=== PATIENT | female | born 1975 | race Caucasian/White ===

== ENCOUNTER → 2019-08-13 15:00 | Outpatient (BNVA) | payer OTHER, SELFPAY | PROVIDERS: Family Provider Family Medicine; PCP Family Medicine; Visit Provider Nurse Practitioner Family | DX: E03.9 Hypothyroidism, unspecified (principal); R53.83 Other fatigue; F41.9 Anxiety disorder, unspecified; F32.9 Major depressive disorder, single episode, unspecified; R00.2 Palpitations | CPT/HCPCS: 80053; 84443 ==

== ENCOUNTER 2019-10-16 07:41 | Outpatient (CLI) | payer OTHER, SELFPAY ==
--- NOTE | 2019-10-16 07:53 | MM_ITS ---
WS: [id number] BILATERAL DIGITAL SCREENING MAMMOGRAPHY WITH CAD CLINICAL INFORMATION: SCREENN HISTORY: Screening mammogram. No current complaints. COMPARISON: TECHNIQUE: Bilateral CC and MLO views. FINDINGS: Scattered fibroglandular densities bilaterally. No suspicious focal mass, asymmetry, calcifications, or architectural distortion. No evidence of malignancy. MM/[place] [id number] IMPRESSION: BI-RADS: 1-Negative FOLLOW UP: 1 Year Follow-up Recommend return to annual screening mammography.
== END 2019-10-16 07:42 | disposition home or self-care (01) ==
LOC: RADSHAW 07:45
PROVIDERS: PCP Family Medicine; Visit Provider Internal Medicine
DX: Z12.31 Encounter for screening mammogram for malignant neoplasm of breast (principal)
CPT/HCPCS: 77067

== ENCOUNTER → 2019-11-10 16:05 | Outpatient (BNVA) | payer OTHER, SELFPAY | PROVIDERS: PCP Family Medicine; Visit Provider Nurse Practitioner Family | DX: E03.9 Hypothyroidism, unspecified (principal); E01.0 Iodine-deficiency related diffuse (endemic) goiter | CPT/HCPCS: 84443 ==

== ENCOUNTER 2020-01-13 14:29 | Outpatient (CLI) | payer OTHER, SELFPAY ==
[2019-12-26 11:20] LABS: Thyroid Stimulating Hormone 0.82 uIU/mL (0.27-4.20)
[2019-12-26 11:31] LABS: Add Urine Culture? No; Amorphous Sediment Urine 2+ /hpf; Bacteria Urine 1+ /hpf; Bilirubin Urine Neg (Negative); Blood Urine Neg (Negative); Glucose Urine UA Norm (Normal); Ketones Urine Negative (Negative); Leukocyte Esterase Urine Negative (Negative); Mucus Urine 2+ /hpf; Nitrate Urine Negative (Negative); Protein Urine Neg (Negative); RBC Urine 0-4 /hpf (0-2); Specific Gravity, Urine 1.015 (1.005-1.030); Sulfosalicylic Acid Urine Negative (Negative); Urine Appearance Clear (CLEAR); Urine Color Straw (Yellow); Urobilinogen Urine Norm (Negative)
--- NOTE | 2020-01-13 14:44 | US_ITS ---
WS: [id number] ULTRASOUND THYROID TECHNIQUE: Ultrasound of the thyroid. CLINICAL INFORMATION: Thyromegaly COMPARISON: None. FINDINGS: Thyroid: Right and left thyroid lobes are somewhat diminutive in size with normal echotexture. No thy roid nodules are present. Right thyroid lobe: 2.8 cm x 0.8 cm x 0.9 cm Left thyroid lobe: 1.9 cm x 0.8 cm x 0.4 cm. Isthmus: 0.2 mm. Cervical lymphadenopathy: None. US/US thyroid [id number] IMPRESSION: 1. Somewhat diminutive thyroid gland with normal echotexture. Recommend correl ation with thyroid function studies. 2. No suspicious nodules.
== END 2020-01-13 14:30 | disposition home or self-care (01) ==
LOC: RAD 14:32
PROVIDERS: PCP Nurse Practitioner Family; Visit Provider Nurse Practitioner Family
DX: E01.0 Iodine-deficiency related diffuse (endemic) goiter (principal); R30.0 Dysuria; R00.2 Palpitations
CPT/HCPCS: 76536

== ENCOUNTER → 2020-04-08 15:39 | Outpatient (BNVA) | payer OTHER, SELFPAY | PROVIDERS: PCP Nurse Practitioner Family; Visit Provider Nurse Practitioner Family | DX: R53.83 Other fatigue (principal); E66.9 Obesity, unspecified; D50.9 Iron deficiency anemia, unspecified; E03.9 Hypothyroidism, unspecified | CPT/HCPCS: 82607; 82728; 83550; 85025 ==

== ENCOUNTER → 2020-04-09 10:07 | Outpatient (BNVA) | payer OTHER, SELFPAY | PROVIDERS: PCP Nurse Practitioner Family; Visit Provider Nurse Practitioner Family | DX: R53.83 Other fatigue (principal); E66.9 Obesity, unspecified; D50.9 Iron deficiency anemia, unspecified | CPT/HCPCS: 84466 ==

== ENCOUNTER → 2020-04-14 08:15 | Outpatient (BNVA) | payer OTHER, SELFPAY | PROVIDERS: PCP Nurse Practitioner Family; Visit Provider Internal Medicine | DX: Z20.828 Contact with and (suspected) exposure to other viral communicable diseases (principal) | CPT/HCPCS: 87635 ==

== ENCOUNTER 2020-04-16 13:44 | Inpatient (IN) | payer OTHER, SELFPAY ==
[2020-04-15 10:23] VITALS: BMI 32.1
--- NOTE | 2020-04-16 09:23 | P.HP_ITS ---
Same Day Surgery H&P Indication for Procedure/HPI DATE OF PROCEDURE: April 16, 2020 CHIEF COMPLAINT/INDICATIONFOR SURGICAL PROCEDURE: Iron deficiency anemia with heme positive stools. PREOP DIAGNOSIS: Iron deficiency anemia with heme positive stools. PLANNED PROCEDRUE: Operation Date: 04/16/20 10:30 Proposed Procedures p EGD 16972 R19.5(Not Applicable) - Tim Shen MD s Colonoscopy 13016 D50.9(Not Applicable) - Tim Shen MD Medications/Allergies* Home Medications Medication Instructions Recorded Confirmed Type vilazodone [Viibryd] 20 mg PO DAILY 04/15/20 04/15/20 History Allergies/Adverse Reactions Allergy/AdvReac Type Severity Reaction Status Date / Time No Known Allergies Allergy Unverified 04/08/20 09:09 Pertinent History/Comorbid Conditions* Medical History (Updated 04/09/20 @ 09:24 by Yanet Jeffery APRN) Hypothyroid Family History (Updated 08/13/19 @ 12:34 by Cyndie Yeh LPN) Diabetes Cancer Social History Smoking and tobacco status: former smoker Alcohol intake: current Alcohol intake frequency: holidays/special occasions only Pertinent Exam Findings alert, oriented x 3, clear to auscultation bilaterally, regular rate & rhythm, operative site marked and procedure specific exam findings Recommendations Surgery/Procedure today Coding Level of Care Code 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
[2020-04-16 09:46] VITALS: BP 115/80; PULSE 85; RESP 18; TEMP 36.9; O2SAT 100
[2020-04-16 10:01] LABS: OR HCG Qualitative Urine Negative (Negative)
[2020-04-16] MEDS: sodium chloride 0.9% 1,000 ML 30 ML IV (10:24)
--- NOTE | 2020-04-16 10:35 | ANES.PREANE2 ---
Pre-Anesthetic Assessment Pre-Anesthetic Assessment: Height/Weight: Height 1.63 m Weight 84.822 kg Temp Pulse Resp BP Pulse Ox 98.4 F 85 18 115/80 100 04/16/20 09:46 04/16/20 09:46 04/16/20 09:46 04/16/20 09:46 04/16/20 09:46 Preop Diagnosis: anemia Proposed Procedure: Operation Date: 04/16/20 10:30 Proposed Procedures p EGD 66541 R19.5(Not Applicable) - Tim Shen MD s Colonoscopy 01294 D50.9(Not Applicable) - Tim Shen MD Familial anesthetic complications: none Was Beta Mable taken within 24 hours: N/A Last intake: Intake Last Liquid Date 04/15/20 Last Liquid Time 00:15 Last Solid Date 04/14/20 Last Solid Time 04:00 Social: Social History: No alcohol and No tobacco Comment: former smoker Exam: Pre-Anes Outpt Exam: alert, oriented x 3, clear to auscultation bilaterally and regular rate & rhythm Airway: Cervical ROM: WNL MP: 2 Dentition: Full CV/HEM: CV/HEM: Anemia and Palp Metabolic: Metabolic: Thyroid Anesthetic Plan: ASA status: 2 Anesthesia: MAC Risk of > 500 ml blood loss (7ml/kg in children): No Meds/Allergies Current Medications: Current Medications Generic Name Dose Route Start Last Admin Trade Name Freq PRN Reason Stop Dose Admin Sodium Chloride 1,000 mls @ 30 ml s/hr 04/16/20 09:45 04/16/20 10:24 Sodium Chloride 0.9% IV 04/17/20 09:44 30 mls/hr .Q24H DAHLIA Administration PFSH Anesthesia PFSH: Medical History (Updated 04/09/20 @ 09:24 by Yanet Jeffery APRN) Hypothyroid Family History Other Cancer Diabetes Social History Smoking and tobacco status: former smoker Alcohol intake: current Alcohol intake frequency: holidays/special occasions only Data Anesthesia Other Labs: Laboratory Results - last 48 hr 04/16/20 09:55 Urine HCG, Qual Negative Cardiac Studies: No Data to Display
--- NOTE | 2020-04-16 11:53 | CT_ITS ---
WS: [id number] CT ABDOMEN AND PELVIS WITH CONTRAST HISTORY: Sigmoid colon cancer. TECHNIQUE: Imaging performed of the abdomen and pelvis with IV contrast. Single phase imaging of the abdomen. Coronal and sagittal reformats are submitted. All CT scans at [facility] use at least one of these dose optimization techniques: automated exposure control; mA and/or kV adjustment per patient size (includes targeted exams where dose is matched to clinical indication); or iterativ e reconstruction. IV CONTRAST: Omnipaque 300; 95 mL IV. Oral contrast: Yes. DLP: 991.27 mGy.cm COMPARISON: None available. Lower thorax: Lung bases are clear. Heart is normal size. No hiatal hernia. Liver/biliary system: Normal size with no intrahepatic dilatation. Gallbladder: Normal. No gallstones or wall thickening. No pericholecystic fluid. Pancreas: Normal. Spleen: Normal. Adrenal glands: Normal. Right kidney: Normal. Left kidney: Normal. Aorta: Normal. Lymphadenopathy: None. Free fluid: None. GI tract: No GI tract obstruction. There is a annular lesion extending over length of 3 cm in the dis raphael descending colon. The colon is tortuous and this lesion is centered towards the midline. There is wall thickening measuring up to 1.1 cm in diameter. No adjacent adenopathy or fluid. Abdominal wall: Unremarkable abdominal wall. No hernia. Pelvis: IUD noted within the endometrial canal. There is also increased density along the cervical an d vaginal canals which appears to be the density of the GI contrast. No rectal contrast was given. Bones: Unremarkable. CT/CT abdomen pelvis w con* [id number] IMPRESSION: 1. Annular colonic lesion in the distal descending/sigmoid colon extends over length of 3 cm with wall thickening measuring up to 1.1 cm. Consistent with col on neoplasm. 2. No metastatic disease to the liver or adrenal glands. No adenopathy identif ied. 3. High density contrast in the cervical and vaginal canals. Possibility of a r ectovaginal or rectocervical fistula should be considered. Notified Tim Shen MD and Dr. Castellanos at 04/16/2020 2:02 PM.
--- NOTE | 2020-04-16 11:54 | ANE.PACU2 ---
Inpatient post-anesthesia follow up: Airway intact: Yes Vital signs: Temperature 98.4 F Pulse Rate 85 Respiratory Rate 18 Blood Pressure 115/80 Pulse Oximetry 100 Oxygen Delivery Me thod Room Air Oxygen Flow Rate Fraction of Inspir ed Oxygen Hydration adequate: Yes Nausea and vomiting: No Mental status: Baseline
[2020-04-16 11:56] VITALS: BP 97/59; PULSE 70; RESP 16; TEMP 36.2; O2SAT 98
[2020-04-16] MEDS: iohexol 300 mg/mL 50 mL Btl PO (12:16)
[2020-04-16 12:17] VITALS: BP 139/79; PULSE 86; RESP 18; O2SAT 100
[2020-04-16 12:54] LABS: Basophils # 0.1 10^3/uL (0.0-0.1); Eosinophils # 0.1 10^3/uL (0.0-0.8); Hematocrit 32.7 % (37.0-47.0); Hemoglobin 9.9 g/dL (11.5-15.3); Lymphocytes # 1.3 10^3/uL (0.8-4.8); Lymphocytes % 21.6 %; Mean Corpuscular HGB Conc 30.3 g/dL (30.0-36.0); Mean Corpuscular Hemoglobin 26.2 pg (28.0-34.0); Mean Corpuscular Volume 86.5 fL (81-99); Mean Platelet Volume 11.1 fL (7.4-10.4); Monocytes # 0.5 10^3/uL (0.2-0.9); Monocytes % 7.5 %; Neutrophils # 4.14 10^3/uL (1.8-7.7); Neutrophils % 67.6 %; Nucleated Red Blood Cells % 0 %; Platelet Count 330 10^3/cmm (130-400); Red Blood Count 3.78 10^6/uL (4.1-5.3); Red Cell Distribution Width 16.1 % (12.1-15.1); White Blood Count 6.1 10^3/uL (4.0-10.0)
[2020-04-16 13:05] VITALS: BP 146/82; PULSE 88; O2SAT 97
--- NOTE | 2020-04-16 13:37 | PC.NURSE ---
this nurse took pt to CT via wheelchair, pt AAO x 3
[2020-04-16] MEDS: iohexol 300 mg/mL 100 mL Btl IV (13:38)
--- NOTE | 2020-04-16 13:56 | PC.NURSE ---
this nurse returned with pt in a wheelchair, pt AAO x 3. pt up to bed and warm blankets applied.
[2020-04-16 14:11] LABS: Carcinoembryonic Antigen 1.3 ng/mL (0.0-4.7)
[2020-04-16 14:22] LABS: Alanine Aminotransferase 11 U/L (0-33); Albumin Level 3.9 g/dL (3.5-5.2); Alkaline Phosphatase 73 IU/L (35-105); Anion Gap 15.8 (5-19); Aspartate Amino Transferase 15 U/L (0-32); Blood Urea Nitrogen 6 mg/dL (6-20); Calcium 8.8 mg/dL (8.5-10.5); Carbon Dioxide 22 mmol/L (22-29); Chloride 106 mmol/L (98-107); Globulin 2.9 g/dL (1.3-4.6); Glomerular Filtration Rate 108.1 mL/min (90-130); Glucose 104 mg/dL (65-115); Osmolality Calculated 288 mOsm/kg (285-295); Potassium 3.8 mmol/L (3.5-5.1); Sodium 140 mmol/L (136-145); Total Bilirubin 0.5 mg/dL (0.15-1.2); Total Protein 6.8 g/dL (6.6-8.7)
[2020-04-16 14:35] VITALS: BP 123/86; PULSE 80
--- NOTE | 2020-04-16 14:42 | P.HP_ITS ---
Providers/Chief Complaint Admitting Physician: General Surgery Alden Castellanos MD Primary Care Provider: Yanet Jeffery APRN Chief Complaint: Iron def anemia, Fecal abnormalities History of Present Illness Bonnie Lr is a 44 year old female who underwent upper and lower endoscopy earlier today by Dr. Shen for iron deficiency anemia. Her EGD was normal but her colonoscopy revealed a malignant appearing mass at approximately 30 cm. The mass could not be traversed. The patient was admitted for further management for fear of impending complete obstruction. The patient tells me that she has had some bright red blood in her stool intermittently over the past 3 months. She has had some intermittent left sided and lower abdominal tenderness at times, but she says she has not had any other significant changes in her bowel habits. Her weight has actually been going up. She has no known family history of colon neoplasia. Review of Systems General: Reports: 10 or more systems reviewed and unremarkable except in HPI and below Const: Denies: fever(s) GI: Reports: abdominal pain and hematochezia Psych: Reports: anxiety and depression Medications/Allergies Home Medications Medication Instructions Recorded Confirmed Last Taken Type levothyroxine 125 mcg capsule 125 mcg PO DAILY #30 cap 11/10/19 04/16/20 04/16/20 Rx semaglutide 3 mg tablet 3 mg PO DAILY 30 Days #30 tab 04/08/20 04/15/20 Unknown Rx ferrous sulfate 250 mg (50 mg 250 mg PO DAILY #30 tab 04/09/20 04/16/20 04/15/20 Rx iron) tablet,extended release vilazodone [Viibryd] 20 mg PO DAILY 04/15/20 04/16/20 04/15/20 History Allergies Allergy/AdvReac Type Severity Reaction Status Date / Time No Known Allergies Allergy Unverified 04/08/20 09:09 PFSH Acute PFSH: Medical History (Updated 04/16/20 @ 14:45 by Alden Castellanos MD) Anxiety and depression Hair loss Heart palpitations Hypothyroid Surgical History (Updated 04/16/20 @ 14:45 by Alden Castellanos MD) H/O breast biopsy Right History of oophorectomy Right -- dermoid cyst Family History (Updated 04/16/20 @ 14:45 by Alden Castellanos MD) Mother Cancer Breast Other Diabetes Social History Smoking and tobacco status: former smoker Alcohol intake: current Alcohol intake frequency: holidays/special occasions only Vitals/I&O/Wt Last Vital Signs Temp 97.2 F L 04/16/20 11:56 Pulse 88 04/16/20 13:05 Resp 18 04/16/20 12:17 BP 146/82 04/16/20 13:05 Pulse Ox 97 04/16/20 13:05 04/15/20 04/16/20 04/16/20 22:59 06:59 14:59 Intake Total 1000 / 1000 Balance 1000 / 1000 Weight last 48 hrs Weight 187 lb Physical Exam Narrative: EXAM NARRATIVE: The patient was encountered in her hospital room. She does not appear to be in any acute distress. The pupils are equal. No carotid bruits are heard. No neck masses are palpated. The chest is clear to auscultation anteriorly. Heart is regular. The abdomen is mildly to moderately obese but is soft. The patient does have some mild lower abdominal tenderness near the midline. No obvious masses are palpated. Bowel sounds are present. The extremities reveal no edema. Neurologically the patient appears to be grossly intact. Data : 04/16/20 12:45 04/16/20 13:27 Other Labs: Laboratory Tests 04/16/20 13:[address] Carcino[address] Abd/Pel: Radiologist's impression: CT scan abdomen/pelvis 04/16/2020 IMPRESSION: 1. Annular colonic lesion in the distal descending/sigmoid colon extends over length of 3 cm with wall thickening measuring up to 1.1 cm. Consistent with colon neoplasm. 2. No metastatic disease to the liver or adrenal glands. No adenopathy identified. 3. High density contrast in the cervical and vaginal canals. Possibility of a rectovaginal or rectocervical fistula should be considered. A&P Assessment and plan (1) Neoplasm of sigmoid colon: CT reviewed. The patient appears to have some redundancy to her sigmoid colon, making me think this will not be a terribly difficult partial colectomy. 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 She she has indicated that she thought her prep worked fairly well yesterday but would not be opposed to doing a little bit more of a prep to make sure that her colon is completely cleaned out prior to surgery. I am going to have the patient drink 1 more bottle of magnesium citrate today. She will be allowed a clear liquid diet until midnight. We will make arrangements for an exploratory laparotomy with partial sigmoid colectomy tomorrow morning. Status: Acute (2) Rectovaginal fistula: The CAT scan was suggestive of a possible rectovaginal fistula. The patient says that she first thought she had passed a little bit of stool through her vagina probably 10 years ago, but really has not seen anything significant since until yesterday when she was doing her prep when she thought she saw a little bit more. It sounds like she probably does have a very small fistula present and patient has known about this for several years, although it rarely ever gives her any signs or symptoms. She is comfortable with this being a back burner issue for now. Status: Acute Attestations Medical Necessity Statement*: Based on my medical assessment, presenting symptoms, medical accuity and consideration of surgical therapy, I expect this patient will require treatment in the hospital for a period spanning at least 2 midnights. 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
[2020-04-16] MEDS: D5-NS 0.45% + KCL 20 mEq 20 MEQ/1,000 ML BAG 100 MEQ IV (15:43)
[2020-04-16] MEDS: magnesium citrate Btl 296 mL PO (15:44)
[2020-04-16] MEDS: metroNIDAZOLE 500 MG Tablet PO ×2 (20:17→22:14)
[2020-04-16 22:00] VITALS: BP 112/74; PULSE 83; RESP 15; TEMP 36.9
[2020-04-17] VITALS (31 sets, daily range): BP systolic 95–123; BP diastolic 55–82; PULSE 66–94; RESP 14–27; TEMP 36.6–36.9; O2SAT 95–100
[2020-04-17] MEDS: D5-NS 0.45% + KCL 20 mEq 20 MEQ/1,000 ML BAG 100 MEQ IV ×2 (02:10→20:44)
--- NOTE | 2020-04-17 07:43 | P.ANESUD_ITS ---
Pre-Anesthetic Update Pre-Anesthetic Assessment: Date of Surgery/Procedure: 04/17/20 Preop Maria Antonia gnosis: anemia Proposed Procedure: Operation Date: 04/16/20 10:30 Proposed Procedures p EGD 89729 R19.5(Not Applicable) - Tim Shen MD s Colonoscopy 06955 D50.9(Not Applicable) - Tim Shen MD Operation Date: 04/17/20 08:30 Proposed Procedures p Sigmoid Colectomy(Not Applicable) - Alden Castellanos MD Changes from Pre-Anesthetic Assessment: general anesthesia planned for sigmoid colectomy. No changes in patient condition noted from yesterday. Last Intake: Intake Last Liquid Date 04/15/20 Last Liquid Time 00:15 Last Solid Date 04/14/20 Last Solid Time 04:00 Last Intake: 22:00 Labs Last 48hrs: Laboratory Results - last 48 hr 04/16/20 04/16/20 04/16/20 09:55 12:45 12:45 WBC 6.1 RBC 3.78 L Hgb 9.9 L Hct 32.7 L MCV 86.5 MCH 26.2 L MCHC 30.3 RDW 16.1 H Plt Count 330 MPV 11.1 H Neut % (Auto) 67.6 Lymph % (Auto) 21.6 Clay % (Auto) 7.5 Eos % (Auto) 1.0 Baso % (Auto) 2.0 Neut # (Auto) 4.14 Lymph # (Auto) 1.3 Clay # (Auto) 0.5 Eos # (Auto) 0.1 Baso # (Auto) 0.1 Nucleated RBC % (a uto) 0 Nucleated RBCs # 0.0 Sodium Cancelled Potassium Cancelled Chloride Cancelled Carbon Dioxide Cancelled Anion Gap Cancelled BUN Cancelled Creatinine Cancelled GFR Calculation Cancelled Glucose Cancelled Calculated Osmolal ity Cancelled Calcium Cancelled Total Bilirubin Cancelled AST Cancelled ALT Cancelled Alkaline Phosphata se Cancelled Total Protein Cancelled Albumin Cancelled Globulin Cancelled Carcinoembryonic A g Cancelled Urine HCG, Qual Negative 04/16/20 13:27 WBC RBC Hgb Hct MCV MCH MCHC RDW Plt Count MPV Neut % (Auto) Lymph % (Auto) Clay % (Auto) Eos % (Auto) Baso % (Auto) Neut # (Auto) Lymph # (Auto) Clay # (Auto) Eos # (Auto) Baso # (Auto) Nucleated RBC % (a uto) Nucleated RBCs # Sodium 140 Potassium 3.8 Chloride 106 Carbon Dioxide 22 Anion Gap 15.8 BUN 6 Creatinine 0.6 GFR Calculation 108.1 Glucose 104 Calculated Osmolal ity 288 Calcium 8.8 Total Bilirubin 0.5 AST 15 ALT 11 Alkaline Phosphata se 73 Total Protein 6.8 Albumin 3.9 Globulin 2.9 Carcinoembryonic A g 1.3 Urine HCG, Qual Vitals: Temperature 98 F 04/17/20 07:15 Temperature Source Oral 04/16/20 22:00 Pulse Rate 78 04/17/20 07:30 Pulse Rhythm 04/16/20 21:00 Pulse Strength 3+ Normal 04/16/20 21:00 Respiratory Rate 16 04/17/20 07:30 Respiratory Effort Non-Labored 04/16/20 16:43 Respiratory Depth Normal 04/16/20 16:43 Respiratory Patter n 04/16/20 21:00 Blood Pressure 119/69 04/17/20 07:30 Blood Pressure Skyla n 85 04/17/20 07:30 Blood Pressure Pos ition Sitting 04/16/20 22:00 Pulse Oximetry 95 04/17/20 07:30 Oxygen Delivery Me thod 04/17/20 07:30 Oxygen Flow Rate 98 04/17/20 07:15 Exam: Pre-Anes Outpt Exam: alert, oriented x 3 and clear to auscultation bilaterally Cardiac Studies: No Data to Display
--- NOTE | 2020-04-17 07:48 | PC.NURSE ---
pt to OR with staff
[2020-04-17] MEDS: sodium chloride 0.9% 1,000 ML 30 ML IV (07:50)
--- NOTE | 2020-04-17 07:52 | W.PM.OPSUD ---
Surgery/Procedure H&P Update DATE OF PROCEDURE: April 17, 2020 DATE H&P PERFORMED: 04/13/20 H&P UPDATE INFORMATION: No changes to prior documentation PRIMARY INDICATION FOR PROCEDURE: Sigmoid colon neoplasm. PLANNED PROCEDURE: Operation Date: 04/16/20 10:30 Proposed Procedures p EGD 99211 R19.5(Not Applicable) - Tim Shen MD s Colonoscopy 08814 D50.9(Not Applicable) - Tim Shen MD Operation Date: 04/17/20 08:30 Proposed Procedures p Sigmoid Colectomy(Not Applicable) - Alden Castellanos MD
[2020-04-17] MEDS: metroNIDAZOLE IV 500 MG/100 ML PREMIX 100 MG IV ×2 (08:05→16:09)
--- NOTE | 2020-04-17 08:39 | SUR.OPER ---
[id number] updated of surgical status
--- NOTE | 2020-04-17 10:03 | PM.OP ---
Operative Report Date of procedure: April 17, 2020 Pre-op Diagnosis: Sigmoid colon neoplasm. Post-op diagnosis: same Procedure Done: Exploratory laparotomy with sigmoid colectomy. Specimens removed/disposition: Sigmoid colon, staple line at proximal end. Surgeon: Alden Castellanos Anesthesia: General Estimated blood loss (mL): 50 Complications: None. Condition: stable Disposition: PACU Procedure: The patient was brought to the operating room and was placed in a supine position on the operating room table. General endotracheal anesthesia was induced. The patient was then converted to a modified lithotomy position. A Multani catheter was inserted. The abdomen and perineum were prepped and draped in a sterile fashion. A lower midline incision was carried out. Cautery was used to divide the subcutaneous tissue and the midline fascia and the peritoneal cavity was then entered. The liver was palpated and no obvious masses were felt. Palpation in the lower abdomen revealed the sigmoid tumor that was actually able to be fairly easily mobilized into the incision, as the patient had quite a bit of redundant sigmoid. The endoscopic ink was clearly identified. The Bookwalter retractor was then used for exposure. The patient's distal sigmoid colon was adhesed to the posterior surface of the uterus and the left ovary. These adhesions were taken down using some blunt dissection and cautery to maintain hemostasis. The colon was divided well distal to the tumor between bowel clamps. The inferior mesenteric artery was divided close to its base and was ligated. Dissection laterally revealed the left ureter. Proximal to the tumor the colon was divided using a LALO 55 stapler. The intervening mesentery was then divided using the LigaSure, ligating larger vessels with ties of 0 or #1 Vicryl. The abdomen was irrigated with several liters of saline. Given the redundancy of the sigmoid colon, further proximal mobilization was not necessary. The staple line on the proximal end of the divided colon was then taken off with True scissors. The colon was then reanastomosed using a handsewn technique. The anastomosis was created by triangulating with multiple pop offs of 3-0 Vicryl. The pelvis was again irrigated and while some irrigation was still in the pelvis a rigid sigmoidoscope was used to inflate the distal colon via the rectum. The colon filled very well and no air leaks were seen at the anastomosis under a level of saline in the pelvis. Further irrigation was carried out. All the laps were removed from the abdomen and the entire abdomen was then irrigated. No ongoing bleeding or other problems were seen anywhere in the abdomen. All needle, instrument, and sponge counts were confirmed to be correct to that point and attention was directed towards closure. The midline fascia was closed using a looped #1 PDS. The subcutaneous tissue was extensively irrigated and the skin was then approximated using skin pete. A sterile dressing was placed over the wound the patient was taken to the recovery area in stable condition postoperatively.
[2020-04-17] MEDS: ondansetron 2 mg/ML SDV 2 mL 4 MG IVP ×3 (10:24→15:42)
[2020-04-17] MEDS: morphine 4 mg/mL SDV 1 mL 2 MG IVP (10:25)
[2020-04-17] MEDS: HYDROmorphone 1 mg/mL INJ 1 mL 0.5 MG IVP (10:38)
--- NOTE | 2020-04-17 11:08 | PC.NURSE ---
Pt back to floor from OR via stretcher. Moved to bed with full assist. Call light in reach
[2020-04-17] MEDS: morphine 4 mg/mL SDV 1 mL IVP ×2 (11:29→15:41)
[2020-04-17] MEDS: heparin 5,000 unit/mL INJ 1 mL 5000 UNIT SUBCUT ×2 (12:21→23:29)
[2020-04-17] MEDS: famotidine 20 mg/2 mL INJ IVP ×2 (12:21→23:18)
[2020-04-17] MEDS: promethazine 25 mg/mL SDV 1 mL IM ×2 (12:57→18:34)
[2020-04-17] MEDS: HYDROmorphone 1 mg/mL INJ 1 mL IVP ×3 (14:19→23:16)
--- NOTE | 2020-04-17 14:44 | ANE.PACU2 ---
Inpatient post-anesthesia follow up: Airway intact: Yes Vital signs: Temperature 98.2 F Pulse Rate 88 Respiratory Rate 16 Blood Pressure 120/82 Pulse Oximetry 100 Oxygen Delivery Me thod Room Air Oxygen Flow Rate 8 Fraction of Inspir ed Oxygen Hydration adequate: Yes Nausea and vomiting: No Pain level: 4 Mental status: Baseline
[2020-04-17] MEDS: ceFAZolin 1,000 MG in sodium chloride 0.9% (plus) 50 ML 100 MG IV ×2 (15:42→23:33)
[2020-04-17] MEDS: ketorolac 30 mg/mL INJ IVP (16:08)
[2020-04-17] MEDS: levalbuterol 0.63 mg/3 mL Neb INHALATION (16:11)
[2020-04-18] VITALS (12 sets, daily range): BP systolic 78–108; BP diastolic 48–64; PULSE 70–82; RESP 15–18; TEMP 36.3–37.1; O2SAT 96–99
[2020-04-18] MEDS: metroNIDAZOLE IV 500 MG/100 ML PREMIX 100 MG IV ×2 (00:55→08:29)
[2020-04-18] MEDS: HYDROmorphone 1 mg/mL INJ 1 mL IVP ×3 (05:11→16:44)
[2020-04-18] MEDS: ketorolac 30 mg/mL INJ IVP ×2 (05:53→16:43)
[2020-04-18 06:23] LABS: Basophils # 0.1 10^3/uL (0.0-0.1); Basophils % 0.9 %; Eosinophils % 0.3 %; Hematocrit 26.8 % (37.0-47.0); Hemoglobin 8.2 g/dL (11.5-15.3); Lymphocytes # 1.1 10^3/uL (0.8-4.8); Lymphocytes % 14.8 %; Mean Corpuscular HGB Conc 30.6 g/dL (30.0-36.0); Mean Corpuscular Hemoglobin 26.5 pg (28.0-34.0); Mean Corpuscular Volume 86.7 fL (81-99); Mean Platelet Volume 10.8 fL (7.4-10.4); Monocytes # 0.9 10^3/uL (0.2-0.9); Monocytes % 11.5 %; Neutrophils # 5.36 10^3/uL (1.8-7.7); Neutrophils % 72.2 %; Nucleated Red Blood Cells % 0 %; Platelet Count 271 10^3/cmm (130-400); Red Blood Count 3.09 10^6/uL (4.1-5.3); Red Cell Distribution Width 16.7 % (12.1-15.1); White Blood Count 7.4 10^3/uL (4.0-10.0)
[2020-04-18 06:27] LABS: Anion Gap 13.7 (5-19); Blood Urea Nitrogen 4 mg/dL (6-20); Calcium 8.3 mg/dL (8.5-10.5); Carbon Dioxide 19 mmol/L (22-29); Chloride 107 mmol/L (98-107); Glomerular Filtration Rate 108.1 mL/min (90-130); Glucose 111 mg/dL (65-115); Osmolality Calculated 280 mOsm/kg (285-295); Potassium 3.7 mmol/L (3.5-5.1); Sodium 136 mmol/L (136-145)
[2020-04-18] MEDS: ceFAZolin 1,000 MG in sodium chloride 0.9% (plus) 50 ML 100 MG IV (07:31)
--- NOTE | 2020-04-18 10:38 | PM.PN ---
Subjective Subjective: Interval history: The patient is feeling much better today. She has had much better luck with Dilaudid as opposed to morphine for postoperative pain control. She has been up moving around. Nursing took it upon themselves to remove her urinary catheter earlier today. She is not passing flatus yet. Vitals/I&O/Wt Last Vital Signs Temp 98.4 F 04/18/20 09:45 Pulse 73 04/18/20 09:45 Resp 16 04/18/20 10:16 BP 108/64 04/18/20 09:45 Pulse Ox 97 04/18/20 10:16 04/17/20 04/18/20 04/18/20 22:59 06:59 14:59 Intake Total 250 / 3550 150 / 3550 Output Total 1900 / 3750 1200 / 3750 100 / 100 Balance -1650 / -200 -1050 / -200 -100 / -100 Physical Exam Narrative: EXAM NARRATIVE: Bowel sounds are present. Dressing is intact. Urinary Catheter Management^: Multani: Cath Placed During This Visit: yes, but has since been removed by the nurse Reason for Continuing Indwelling Catheter: Decision to DC Catheter Urinary Catheter Date of Insertion: 04/17/20 Urinary Catheter Time of Insertion: 08:15 Date Urinary Catheter Removed: 04/18/20 Time Urinary Catheter Discontinued: 03:47 Data : 04/18/20 06:15 04/18/20 05:15 A&P Assessment and plan (1) Neoplasm of sigmoid colon: Status post exploratory laparotomy with partial sigmoid colectomy on 04/17/2020. The patient already has bowel sounds and appears to be doing well. Increase activity. Status: Acute (2) Rectovaginal fistula: The CAT scan was suggestive of a possible rectovaginal fistula. The patient says that she first thought she had passed a little bit of stool through her vagina probably 10 years ago, but really has not seen anything significant since until yesterday when she was doing her prep when she thought she saw a little bit more. It sounds like she probably does have a very small fistula present and patient has known about this for several years, although it rarely ever gives her any signs or symptoms. She is comfortable with this being a back burner issue for now. Status: Acute Attestations Medical Necessity Statement*: Patient requires continued inpatient care following partial sigmoid colectomy. 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
[2020-04-18] MEDS: D5-NS 0.45% + KCL 20 mEq 20 MEQ/1,000 ML BAG 100 MEQ IV ×2 (11:00→21:09)
[2020-04-18] MEDS: famotidine 20 mg/2 mL INJ IVP ×2 (11:00→23:57)
[2020-04-18] MEDS: heparin 5,000 unit/mL INJ 1 mL 5000 UNIT SUBCUT (11:00)
[2020-04-19] VITALS (11 sets, daily range): BP systolic 90–113; BP diastolic 57–74; PULSE 77–90; RESP 14–18; TEMP 36.6–36.9; O2SAT 97–99
[2020-04-19] MEDS: heparin 5,000 unit/mL INJ 1 mL 5000 UNIT SUBCUT (00:03)
[2020-04-19] MEDS: HYDROmorphone 1 mg/mL INJ 1 mL IVP ×3 (03:03→21:08)
[2020-04-19] MEDS: ketorolac 30 mg/mL INJ IVP (03:05)
[2020-04-19 05:14] LABS: Chloride 107 mmol/L (98-107); Potassium 3.8 mmol/L (3.5-5.1); Sodium 137 mmol/L (136-145)
[2020-04-19 05:54] LABS: Anion Gap 12.8 (5-19); Blood Urea Nitrogen 4 mg/dL (6-20); Calcium 8.2 mg/dL (8.5-10.5); Carbon Dioxide 21 mmol/L (22-29); Creatinine Clr Calc Pharmacy 149.7213; Glomerular Filtration Rate 133.4 mL/min (90-130); Glucose 130 mg/dL (65-115); Osmolality Calculated 283 mOsm/kg (285-295)
[2020-04-19 06:26] LABS: Basophils # 0.1 10^3/uL (0.0-0.1); Basophils % 1.9 %; Eosinophils # 0.1 10^3/uL (0.0-0.8); Eosinophils % 2.3 %; Hematocrit 24.9 % (37.0-47.0); Hemoglobin 7.4 g/dL (11.5-15.3); Lymphocytes # 1.3 10^3/uL (0.8-4.8); Lymphocytes % 27.5 %; Mean Corpuscular HGB Conc 29.7 g/dL (30.0-36.0); Mean Corpuscular Hemoglobin 26.1 pg (28.0-34.0); Mean Corpuscular Volume 87.7 fL (81-99); Mean Platelet Volume 10.7 fL (7.4-10.4); Monocytes # 0.4 10^3/uL (0.2-0.9); Monocytes % 8.1 %; Neutrophils # 2.91 10^3/uL (1.8-7.7); Nucleated Red Blood Cells % 0 %; Platelet Count 241 10^3/cmm (130-400); Red Blood Count 2.84 10^6/uL (4.1-5.3); Red Cell Distribution Width 16.8 % (12.1-15.1); White Blood Count 4.8 10^3/uL (4.0-10.0)
[2020-04-19] MEDS: D5-NS 0.45% + KCL 20 mEq 20 MEQ/1,000 ML BAG 100 MEQ IV (06:54)
--- NOTE | 2020-04-19 10:14 | PM.PN ---
Subjective Subjective: Interval history: The patient started passing flatus this morning. She actually subsequently even had a bowel movement. She tolerated clear liquids for breakfast but is not terribly hungry. She was hoping we could change her nebulizer treatments to as needed. Vitals/I&O/Wt Last Vital Signs Temp 98.2 F 04/19/20 06:00 Pulse 77 04/19/20 06:00 Resp 16 04/19/20 07:47 BP 90/57 04/19/20 06:00 Pulse Ox 97 04/19/20 06:00 04/18/20 04/19/20 04/19/20 22:59 06:59 14:59 Intake Total 999 / 1974 975 / 1975 250 / 250 Output Total 275 / 1225 700 / 1225 200 / 200 Balance 725 / 750 275 / 750 50 / 50 Physical Exam Narrative: EXAM NARRATIVE: The dressing was removed and the incision looks good. Urinary Catheter Management^: Multani: Cath Placed During This Visit: yes, but has since been removed by the nurse Reason for Continuing Indwelling Catheter: Decision to DC Catheter Urinary Catheter Date of Insertion: 04/17/20 Urinary Catheter Time of Insertion: 08:15 Date Urinary Catheter Removed: 04/18/20 Time Urinary Catheter Discontinued: 03:47 Data : 04/19/20 06:20 04/19/20 04:30 A&P Assessment and plan (1) Neoplasm of sigmoid colon: Status post exploratory laparotomy with partial sigmoid colectomy on 04/17/2020. Bowel function appears to have returned. Advance diet to a low residue diet as tolerated. Hemoglobin has drifted somewhat -- we will decrease IV rate and stop subcutaneous heparin as patient is up ambulating regularly. Change nebulizers to as needed. P.o. pain medication. Status: Acute (2) Rectovaginal fistula: The CAT scan on admission was suggestive of a possible rectovaginal fistula. The patient says that she first thought she had passed a little bit of stool through her vagina probably 10 years ago, but really has not seen anything significant since until yesterday when she was doing her prep when she thought she saw a little bit more. It sounds like she probably does have a very small fistula present and patient has known about this for several years, although it rarely ever gives her any signs or symptoms. She is comfortable with this being a back burner issue for now. Status: Acute Attestations Medical Necessity Statement*: Patient requires continued inpatient care following sigmoid resection. 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
--- NOTE | 2020-04-19 10:58 | AMB.MCA ---
Patient Information COVID 19 other sytmptoms: negative chest pressure, chest pain, requiring oxygen or requiring more oxygen Severity: mild Treatment prior to arrival: none [facility] COVID test results: Nasal/Oral Coronavirus 2019 PCR Not detected 04/14/20 08:15 04/14/20 outside results available, scanned Criteria/Plan Inclusion/Exclusion Criteria weight >/= 40kg, + direct test </= 10 days ago and symptom onset </= 10 days ago age >/= 65 Patient education patient/caregiver received/reviewed fact sheet, Emergency Use Authorization/unapproved drug status discussed with patient/caregiver, alternatives to this treatment discussed with patient/caregiver, risks and benefits of medication reviewed with patient/caregiver, patient/caregiver given opportunity for questions, which were answered and patient/caregiver consents to receiving Monoclonal Antibody Treatment Plan for treatment Meets criteria for Monoclonal Antibody infusion Monoclonal antibody information given
[2020-04-19] MEDS: famotidine 20 mg/2 mL INJ IVP (11:53)
[2020-04-19] MEDS: HYDROcodone-acetaminophen 5-325 mg Tablet PO ×2 (11:53→16:46)
[2020-04-20] MEDS: HYDROcodone-acetaminophen 5-325 mg Tablet PO ×2 (01:28→07:21)
[2020-04-20] MEDS: D5-NS 0.45% + KCL 20 mEq 20 MEQ/1,000 ML BAG 50 MEQ IV (01:29)
[2020-04-20 02:41] LABS: Basophils # 0.1 10^3/uL (0.0-0.1); Eosinophils # 0.2 10^3/uL (0.0-0.8); Eosinophils % 3.6 %; Hematocrit 29.5 % (37.0-47.0); Hemoglobin 8.6 g/dL (11.5-15.3); Lymphocytes # 2.2 10^3/uL (0.8-4.8); Lymphocytes % 40.1 %; Mean Corpuscular HGB Conc 29.2 g/dL (30.0-36.0); Mean Corpuscular Volume 89.1 fL (81-99); Mean Platelet Volume 11.3 fL (7.4-10.4); Monocytes # 0.4 10^3/uL (0.2-0.9); Monocytes % 6.6 %; Neutrophils # 2.64 10^3/uL (1.8-7.7); Neutrophils % 47.3 %; Nucleated Red Blood Cells % 0 %; Platelet Count 291 10^3/cmm (130-400); Red Blood Count 3.31 10^6/uL (4.1-5.3); Red Cell Distribution Width 16.9 % (12.1-15.1); White Blood Count 5.6 10^3/uL (4.0-10.0)
[2020-04-20 03:01] LABS: Blood Urea Nitrogen 6 mg/dL (6-20); Calcium 8.9 mg/dL (8.5-10.5); Carbon Dioxide 23 mmol/L (22-29); Chloride 106 mmol/L (98-107); Glomerular Filtration Rate 107.6 mL/min (90-130); Glucose 88 mg/dL (65-115); Osmolality Calculated 283 mOsm/kg (285-295); Sodium 138 mmol/L (136-145)
[2020-04-20 03:15] LABS: Anion Gap 13.7 (5-19); Potassium 4.7 mmol/L (3.5-5.1)
[2020-04-20 05:00] VITALS: BP 96/61; PULSE 64; RESP 16; TEMP 36.8; O2SAT 98
--- NOTE | 2020-04-20 06:51 | P.DS_ITS ---
Discharge Providers Date of Admission: 04/16/20 13:44 Date of Discharge: April 20, 2020 Attending Provider at Admission: General Surgery Alden Castellanos MD Attending Provider at Discharge: General Surgery Alden Castellanos MD Primary Care Provider: Yanet Jeffery APRN Diagnoses at Discharge Discharge Diagnosis (1) Neoplasm of sigmoid colon: Status: Acute (2) Rectovaginal fistula: Status: Acute Reason for Visit Reason for Visit: Iron def anemia, Fecal abnormalities Hospital Course Hospital Course This is a 45-year-old white female who underwent endoscopy for a 3-month history of hematochezia, anemia and some abdominal discomfort. She was found to have a malignant appearing sigmoid neoplasm that was nearly obstructing. The patient elected to be admitted for definitive treatment. A preoperative CAT scan showed no obvious evidence of metastatic disease and a CEA level was normal. The following day she was taken to the operating room and a sigmoid colectomy with a handsewn anastomosis was performed. No obvious evidence of metastatic disease was seen. Postoperatively the patient's course was essentially uneventful. Her bowel function eventually returned. Her Multani catheter had been discontinued on the first postoperative day. She was started on a clear liquid diet which was eventually advanced to a low residue diet which she tolerated well. Her incision was clean and intact at the time of discharge. The patient was discharged to home on 04/20/2020 with instructions regarding wound care, a low residue diet, activity limitations, etc. A follow-up appointment will be made for the patient to see me in my office early next week. Pathology was still pending at the time of discharge. Physical Exam Urinary Catheter Management^: Multani: Cath Placed During This Visit: yes, but has since been removed by the nurse Reason for Continuing Indwelling Catheter: Decision to DC Catheter Urinary Catheter Date of Insertion: 04/17/20 Urinary Catheter Time of Insertion: 08:15 Date Urinary Catheter Removed: 04/18/20 Time Urinary Catheter Discontinued: 03:47 Discharge Data Data Completed and Pending: Completed Studies During Hospitalization Category Date Time Status CT abdomen pelvis w con* [id number] Rout ine Cat Scan 04/16/20 11:53 Completed Pending at discharge Category Date Time Status Microsatellite In stability MSI Rout ine Lab 04/17/20 11:08 Ordered Pathology: Surgic al [PTH] Routine Pth 04/16/20 11:45 Received Pathology: Surgic al [PTH] Routine Pth 04/17/20 10:16 Received Labs from last 24 hours 04/20/20 04/20/20 02:10 02:10 WBC 5.6 RBC 3.31 L Hgb 8.6 L Hct 29.5 L MCV 89.1 MCH 26.0 L MCHC 29.2 L RDW 16.9 H Plt Count 291 MPV 11.3 H Neut % (Auto) 47.3 Lymph % (Auto) 40.1 Aiken % (Auto) 6.6 Eos % (Auto) 3.6 Baso % (Auto) 2.0 Neut # (Auto) 2.64 Lymph # (Auto) 2.2 Aiken # (Auto) 0.4 Eos # (Auto) 0.2 Baso # (Auto) 0.1 Nucleated RBC % (a uto) 0 Nucleated RBCs # 0.0 Sodium 138 Potassium 4.7 Chloride 106 Carbon Dioxide 23 Anion Gap 13.7 BUN 6 Creatinine 0.6 GFR Calculation 107.6 Glucose 88 Calculated Osmolal ity 283 L Calcium 8.9 Vitals: Last Vital Signs Temp 98.2 F 04/20/20 05:00 Pulse 64 04/20/20 05:00 Resp 16 04/20/20 05:00 BP 96/61 04/20/20 05:00 Pulse Ox 98 04/20/20 05:00 Discharge Plan Discharge Patient Disposition: Home Condition: Stable Prescriptions: New hydrocodone-acetaminophen 5-325 mg tablet 1 - 2 tab PO Q5H PRN (Reason: pain) Qty: 30 RF: 0 Continued levothyroxine 125 mcg capsule 125 mcg PO DAILY Qty: 30 RF: 3 Rybelsus 3 mg tablet 3 mg PO DAILY 30 Days Qty: 30 RF: 0 ferrous sulfate 250 mg (50 mg iron) tablet extended release 250 mg PO DAILY Qty: 30 RF: 3 Viibryd 20 mg tablet 20 mg PO DAILY RF: 0 Discharge Orders: Discharge Order (Routine); Ordered 04/20/20 Ordered By: Alden Castellanos Referrals: Alden Castellanos MD [Physician] - 1 week (Nursing: Please call Dr. Castellanos's office ([phone]) and make an appointment for the patient to be seen early next week.) Discharge Diet: As Directed Discharge Activity: Limit activity as instructed Activity Restrictions/Additional Instructions: 1. Discharge to home today. 2. Appointment to see Dr. Castellanos next week as above. 3. May shower at home as discussed. 4. Nineveh 5/325 1-2 tablets by mouth every 5 hours as needed for pain. #30, no refills. No lifting over 20 pounds, no repetitive bending or twisting, no strenuous pushing / pulling or other heavy activity. Ambulate regularly. May go up and down steps if needed. 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
[2020-04-20 09:30] VITALS: BP 109/71; PULSE 69; RESP 18; TEMP 36.7
[2020-04-20 10:36] VITALS: BP 109/71; PULSE 69; RESP 18; TEMP 36.7
[2020-04-30 12:22] LABS: Miscellaneous Test See Scanned Lab Rpt
== END 2020-04-20 10:25 | disposition home or self-care (01) | DRG 330 ==
LOC: OBGYN 16:14
PROVIDERS: Anesthesiology; Surgery; Admitting Provider Internal Medicine; Visit Provider Internal Medicine
PROC: 0DJ08ZZ Inspection of Upper Intestinal Tract, Via Natural or Artificial Opening Endoscopic (ICD-10-PCS; CPT 43235; principal; 2020-04-16 10:30)
PROC: 0DJD8ZZ Inspection of Lower Intestinal Tract, Via Natural or Artificial Opening Endoscopic (ICD-10-PCS; CPT 45378; 2020-04-16 10:30)
PROC: 0DBN0ZZ Excision of Sigmoid Colon, Open Approach (ICD-10-PCS; principal; 2020-04-17 08:00)
DX: D37.4 Neoplasm of uncertain behavior of colon (principal); N82.3 Fistula of vagina to large intestine; D50.9 Iron deficiency anemia, unspecified; E03.9 Hypothyroidism, unspecified; Z87.891 Personal history of nicotine dependence; F41.8 Other specified anxiety disorders
CPT/HCPCS: 12345; 36415; 43235; 45380; 45381; 51702; 74177; 80048; 80053; 81025; 81301; 82378; 84703; 85025; 88305; 88309; 94640; 96365; 96372; C9290; J0690; J1100; J1170; J1644; J1885; J2250; J2270; J2405; J2550; J2704; J2710; J3010; J3490; J7030; J7614; Q9967; S0030

== ENCOUNTER 2020-05-05 09:57 | Outpatient (CLI) | payer OTHER, SELFPAY ==
[2020-05-05 12:05] LABS: Basophils # 0.1 10^3/uL (0.0-0.1); Basophils % 2.4 %; Eosinophils # 0.2 10^3/uL (0.0-0.8); Eosinophils % 3.4 %; Hematocrit 34.2 % (37.0-47.0); Hemoglobin 10.4 g/dL (11.5-15.3); Lymphocytes # 1.6 10^3/uL (0.8-4.8); Lymphocytes % 28.4 %; Mean Corpuscular HGB Conc 30.4 g/dL (30.0-36.0); Mean Corpuscular Hemoglobin 26.2 pg (28.0-34.0); Mean Corpuscular Volume 86.1 fL (81-99); Mean Platelet Volume 10.8 fL (7.4-10.4); Monocytes # 0.6 10^3/uL (0.2-0.9); Neutrophils # 3.02 10^3/uL (1.8-7.7); Neutrophils % 54.6 %; Nucleated Red Blood Cells % 0 %; Platelet Count 320 10^3/cmm (130-400); Red Blood Count 3.97 10^6/uL (4.1-5.3); Red Cell Distribution Width 18.9 % (12.1-15.1); White Blood Count 5.5 10^3/uL (4.0-10.0)
[2020-05-05 12:36] LABS: Alanine Aminotransferase 16 U/L (0-33); Albumin Level 4.1 g/dL (3.5-5.2); Alkaline Phosphatase 70 IU/L (35-105); Anion Gap 12.7 (5-19); Aspartate Amino Transferase 16 U/L (0-32); Blood Urea Nitrogen 6 mg/dL (6-20); Calcium 9.5 mg/dL (8.5-10.5); Carbon Dioxide 23 mmol/L (22-29); Chloride 103 mmol/L (98-107); Ferritin 61 ng/mL (15-150); Globulin 2.8 g/dL (1.3-4.6); Glomerular Filtration Rate 107.6 mL/min (90-130); Glucose 66 mg/dL (65-115); Iron 49 ug/dL (37-145); Osmolality Calculated 276 mOsm/kg (285-295); Percent Saturation 14.1 % (20-50); Potassium 3.7 mmol/L (3.5-5.1); Sodium 135 mmol/L (136-145); Total Bilirubin 0.3 mg/dL (0.15-1.2); Total Iron Binding Capacity 346 mcg/dl; Total Protein 6.9 g/dL (6.6-8.7); Unsaturated Iron Binding 297 ug/dL (112-347)
[2020-05-05 12:40] LABS: Vitamin B12 491 pg/mL (232-1245)
--- NOTE | 2020-05-28 10:00 | ONC CON_ITS ---
Dr. Gutierrez New Patient Note Patient: Bonnie Lr Unit #: [id number]: 1975 Dicatated By: Mikhail Gutierrez M.D.Date of Visit: May 05, 2020 Onc MED New Patient/Consult Referring Physician: Dr. Alden Castellanos M.D. History of Present Illness: Ms. Bonnie Lr, is a 45-year-old female with 6-month history of off and on bleeding per rectum and progressive generalized weakness and fatigue, her CBC done on April 07, 2020 showed hemoglobin of around 7 or 8 g, patient was started on oral iron by PMD and patient was referred to Dr. Shen for evaluation and EGD and colonoscopy. And on April 16, 2020 she underwent colonoscopy which showed at 30 cm from anal verge, is severe, malignant appearing, intrinsic stenosis was noted, the stenosis was not traversed completely obstructing, large size fungating, friable, infiltrating, malignant appearing, ulcerated, circumferential mass was seen and the mass was actively bleeding, biopsies were obtained which confirmed malignancy and on April 16, [address] scan of abdomen pelvis done which showed annular colonic lesion in the distal descending/sigmoid colon extends over 3 cm with wall thickening measuring up to 1.1 cm with a high density contrast and cervical and vaginal canals possibility of rectovaginal or ectocervical fistula should be considered. Patient underwent exploratory laparotomy and sigmoid colectomy on April 16, 2020 and final pathology report showed tumor size 5.7 cm, no macroscopic tumor perforation, well-differentiated adenocarcinoma, tumor invades through muscularis propria into pericolorectal tissue. All margins clear. No lymphovascular invasion seen. 0 out of 13 lymph nodes showed metastatic disease e.g. pT3,N0, MX, stage II Patient tolerated procedure well. Patient denies any history of weight loss, patient denies any history of jaundice patient denies any history of abdominal pain or melena or hematochezia, denies any fever chills denies any hematuria or dysuria. Patient denies any history of smoking or alcohol use.. Past Medical History: Ms. Lr's medical history consists of anxiety and hypothyroidism. Past Surgical History: Ms. Farmers surgical/procedural history consists of breast biopsy, right oopherectomy, colonoscopy in 2020, and sigmoid colectomy in 2020. Medications: Ferrous Sulfate ER 1 Tablet (of 50 mg) Tablet, controlled release Oral daily, Levothyroxine Sodium 1 Tablet (of 125 mcg) Oral daily, Viibryd 1 Tablet (of 20 mg) Oral daily Allergies: No Known Allergies. Social History: Ms. Lr is . Ms. Lr no longer smokes. She drinks occasionally. Family History: There is no documented family history. Review Of Symptoms: Constitutional - Appetite is good and weight is stable. No fever, night sweats, or hot flashes. Energy is fair, ENMT - No sinus congestion/drainage. No mouth sores. No sore throat or difficulty swallowing, Hematologic/Lymphatic - Positive for Hx of anemia, Respiratory - No shortness of breath. No cough. No pleuritic pain or hemoptysis, Cardiovascular - No angina pain. No palpitations, Gastrointestinal - No nausea or vomiting. No heartburn or acid reflux. No diarrhea or constipation. No blood in the stool or black stools, Genitourinary (F) - No dysuria or hematuria. No urinary frequency. No urgency or incontinence, Musculoskeletal - No joint or bone pain, Neurologic - No headache or dizziness. No numbness or tingling. No other focal neurologic symptoms, Psychiatric - No anxiety or depression. No insomnia. Vital Signs: Performed on May 05, 2020 10:49: 0, 33.20 (HIGH), 1.93 sq.m, 64 in, 98 %, 75 /min, 16 /min, 103/59 mm(hg), 98.8 F, and 193.4 lbs (HIGH). Performance Status: 0 - Fully active, able to carry on all predisease activities without restrictions. (ECOG) Physical Examination: ENMT - No mouth sores, no thrush, no jaundice, Respiratory - Lungs are clear to auscultation, Cardiovascular - Regular rate and rhythm of heart, Abdomen - Soft, bowel sounds present, Well-healed surgical scar, Extremities - No visible edema. Lab/Imaging: Most recent lab results are not available for this patient. Impression: Well-differentiated adenocarcinoma involving sigmoid colon status post exploratory laparotomy with sigmoid colectomy done on April 17, 2020 and final pathology report showed well-differentiated adenocarcinoma 5.7 cm, tumor invades through muscularis propria into pericolorectal tissue,, with clear surgical margin, no lymphovascular invasion seen, 0 out of 13 lymph node showed metastatic disease, pT3, N0, MX, stage II, MSI MMR proficient CT scan of abdomen pelvis done on April 16, 2020 showed annular colonic lesion in the distal descending/sigmoid colon. No metastatic disease to the liver or adrenal gland or no lymphadenopathy. High density contrast in the cervical and vaginal canal probability of rectovaginal/ectocervical fistula should be considered Iron deficiency anemia due to above Plan: Discussed with patient regarding her disease status and treatment options, clinically, patient has stage IIA disease e.g. T3, N0, MX with only 1 unfavorable feature e.g. near obstructive lesion , otherwise no lymphovascular involvement, adequate lymph node sampling, clear margins, T3 lesion, no perforation Treatment options discussed with patient and was advised that there is no clear-cut indication for adjuvant chemotherapy in low risk stage IIA but considering her age and near obstructive lesion at the time of presentation, treatment with adjuvant therapy with oral Xeloda was offered or observation with regular follow-up or referral to tertiary care center for evaluation for clinical trial. Patient and her opted for observation with regular follow-up, Patient had incomplete colonoscopy, so we will see Dr. Shen in near future for colonoscopy. We will also discussed with Dr. Castellanos regarding CT scan findings which showed there was high density contrast in the cervical and vaginal canals and mentioned about possibility of rectovaginal/ectocervical fistula while in resected sigmoid colon lesion there was no mention of perforation or fistula. As far as iron deficiency anemia is concerned, patient is on oral iron, tolerating well and her preop CBC showed hemoglobin around 11 g. Patient will return to clinic in 3 months with CBC CMP and CEA and iron studies Signed By: Mikhail Gutierrez M.D. <<Signature on File>>
== END 2020-05-05 09:58 | disposition home or self-care (01) ==
LOC: ONCMED 10:00
PROVIDERS: PCP Nurse Practitioner Family; Visit Provider Internal Medicine Hematology & Oncology
DX: C18.7 Malignant neoplasm of sigmoid colon (principal); D50.9 Iron deficiency anemia, unspecified; Z79.899 Other long term (current) drug therapy
CPT/HCPCS: 36415; 80053; 82607; 82728; 82746; 83540; 83550; 85025; 99204

== ENCOUNTER → 2020-06-28 15:47 | Outpatient (BNVA) | payer OTHER, SELFPAY | PROVIDERS: PCP Nurse Practitioner Family; Visit Provider Surgery | DX: Z01.812 Encounter for preprocedural laboratory examination (principal); Z20.822 Contact with and (suspected) exposure to COVID-19 | CPT/HCPCS: 87635 ==

== ENCOUNTER 2020-07-01 06:01 | Day surgery (SDC) | payer OTHER, SELFPAY ==
[2020-06-29 11:39] VITALS: BMI 30.9
[2020-07-01 06:15] VITALS: BP 116/76; PULSE 79; RESP 18; TEMP 36.8; O2SAT 97
[2020-07-01 06:29] LABS: OR HCG Qualitative Urine Negative (Negative)
--- NOTE | 2020-07-01 06:43 | ANES.PREANE2 ---
Pre-Anesthetic Assessment Pre-Anesthetic Assessment: Height/Weight: Height 1.63 m Weight 81.647 kg Temp Pulse Resp BP Pulse Ox 98.3 F 79 18 116/76 97 07/01/20 06:15 07/01/20 06:15 07/01/20 06:15 07/01/20 06:15 07/01/20 06:15 Preop Diagnosis: Sigmoid colon neoplasm. Proposed Procedure: Operation Date: 07/01/20 07:00 Proposed Procedures p Colonoscopy 09373 z85.038(Not Applicable) - Alden Castellanos MD Was Beta Mable taken within 24 hours: N/A Was Clonidine taken within 24 hours: N/A Last intake: Intake Last Liquid Date 06/30/20 Last Liquid Time 22:30 Last Solid Date 06/29/20 Last Solid Time 23:55 Social: Social History: No tobacco Exam: Pre-Anes Outpt Exam: alert, oriented x 3, clear to auscultation bilaterally and regular rate & rhythm Airway: Submandibular: WNL Cervical ROM: WNL MP: 2 Dentition: Full History/ROS: No significant history except as noted and No significant complaints Pulmonary: Pulmonary: None reported CV/HEM: CV/HEM: None reported : : None reported Hepatic: Hepatic: None reported GI: GI: None reported Metabolic: Metabolic: Thyroid Musc/skel: Musc/skel: None reported Neuropsych: Neuropsych: None reported Anesthetic Plan: ASA status: 2 Anesthesia: MAC Risk of > 500 ml blood loss (7ml/kg in children): No PFSH Anesthesia PFSH: Medical History Anxiety and depression Hair loss Heart palpitations Hypothyroid Surgical History H/O breast biopsy Right History of oophorectomy Right -- dermoid cyst Family History Mother Cancer Breast Other Diabetes Social History Smoking and tobacco status: former smoker Alcohol intake: current Alcohol intake frequency: holidays/special occasions only Female Reproductive History: Date of last menstrual period: 04/16/20 Data Anesthesia Other Labs: Laboratory Results - last 48 hr 07/01/20 06:12 Urine HCG, Qual Negative Cardiac Studies: No Data to Display
[2020-07-01] MEDS: sodium chloride 0.9% 1,000 ML 30 ML IV (06:47)
--- NOTE | 2020-07-01 06:49 | W.PM.OPSUD ---
Surgery/Procedure H&P Update DATE OF PROCEDURE: July 01, 2020 DATE H&P PERFORMED: 06/01/20 H&P UPDATE INFORMATION: No changes to prior documentation PREOP DIAGNOSIS: Screening (completion colonoscopy), history of colon cancer PLANNED PROCEDURE: Operation Date: 07/01/20 07:00 Proposed Procedures p Colonoscopy 78787 z85.038(Not Applicable) - Alden Castellanos MD
[2020-07-01 07:16] VITALS: BP 96/54; PULSE 67; RESP 20; TEMP 36.6; O2SAT 96
[2020-07-01 07:28] VITALS: BP 103/68; PULSE 61; RESP 18; O2SAT 99
--- NOTE | 2020-07-01 13:26 | ANE.PACU2 ---
Inpatient post-anesthesia follow up: Airway intact: Yes Vital signs: Temperature 97.9 F Pulse Rate 61 Respiratory Rate 18 Blood Pressure 103/68 Pulse Oximetry 99 Oxygen Delivery Me thod Room Air Oxygen Flow Rate Fraction of Inspir ed Oxygen Hydration adequate: Yes Nausea and vomiting: No Pain level: 1 Mental status: Baseline
== END 2020-07-01 07:36 | disposition home or self-care (01) ==
PROVIDERS: Anesthesiology; PCP Nurse Practitioner Family; Visit Provider Surgery
PROC: 0DJD8ZZ Inspection of Lower Intestinal Tract, Via Natural or Artificial Opening Endoscopic (ICD-10-PCS; CPT 45378; principal; 2020-07-01 07:00)
DX: D12.2 Benign neoplasm of ascending colon (principal); Z85.038 Personal history of other malignant neoplasm of large intestine; K64.8 Other hemorrhoids; E03.9 Hypothyroidism, unspecified; F41.9 Anxiety disorder, unspecified; Z83.3 Family history of diabetes mellitus; Z87.891 Personal history of nicotine dependence
CPT/HCPCS: 12345; 45385; 81025; 84703; 88305; 96360; J2704; J7030

== ENCOUNTER 2020-08-03 09:32 | Outpatient (CLI) | payer OTHER, SELFPAY ==
--- NOTE | 2020-08-03 09:36 | XRR_ITS ---
PROCEDURE INFORMATION: Exam: XR Right Foot Exam date and time: 08/03/2020 9:39 AM Age: 45 years old Clinical indication: Injury or trauma; Fall; Sprain or strain; Ankle and foot; Right; Injury date: 1 week ago; Additional info: S99.911a - unspecified injury of right ankle, initial enc. . . TECHNIQUE: Imaging protocol: XR Right foot. Views: 3 or more views. COMPARISON: No relevant prior studies available. FINDINGS: Bones/joints: Negative for acute bony abnormality. Soft tissues: Normal. XR/XR foot RT min 3V* [id number] IMPRESSION: No acute findings.
--- NOTE | 2020-08-03 09:36 | XRR_ITS ---
PROCEDURE INFORMATION: Exam: XR Right Ankle Exam date and time: 08/03/2020 9:39 AM Age: 45 years old Clinical indication: Injury or trauma; Fall; Sprain or strain; Ankle and foot; Right; Injury date: 1 week ago; Additional info: S99.911a - unspecified injury of right ankle, initial enc. . . TECHNIQUE: Imaging protocol: XR Right ankle. Views: 3 or more views. COMPARISON: No relevant prior studies available. FINDINGS: Bones/joints: Negative for acute bony abnormality. Soft tissues: Normal. XR/XR ankle RT min 3V* [id number] IMPRESSION: No acute findings.
== END 2020-08-03 09:33 | disposition home or self-care (01) ==
PROVIDERS: PCP Nurse Practitioner Family; Visit Provider Nurse Practitioner Family
DX: S99.911A Unspecified injury of right ankle, initial encounter (principal); X58.XXXA Exposure to other specified factors, initial encounter
CPT/HCPCS: 73610; 73630

== ENCOUNTER 2020-08-04 07:38 | Outpatient (CLI) | payer OTHER, SELFPAY ==
[2020-08-04 08:50] LABS: Basophils # 0.2 10^3/uL (0.0-0.1); Basophils % 2.9 %; Eosinophils # 0.1 10^3/uL (0.0-0.8); Eosinophils % 2.2 %; Hematocrit 38.5 % (37.0-47.0); Hemoglobin 12.3 g/dL (11.5-15.3); Lymphocytes # 1.7 10^3/uL (0.8-4.8); Lymphocytes % 31.2 %; Mean Corpuscular HGB Conc 31.9 g/dL (30.0-36.0); Mean Corpuscular Hemoglobin 28.4 pg (28.0-34.0); Mean Corpuscular Volume 88.9 fL (81-99); Monocytes # 0.4 10^3/uL (0.2-0.9); Neutrophils # 3.04 10^3/uL (1.8-7.7); Neutrophils % 55.5 %; Nucleated Red Blood Cells % 0 %; Platelet Count 258 10^3/cmm (130-400); Red Blood Count 4.33 10^6/uL (4.1-5.3); Red Cell Distribution Width 16.7 % (12.1-15.1); White Blood Count 5.5 10^3/uL (4.0-10.0)
[2020-08-04 09:17] LABS: Alanine Aminotransferase 12 U/L (0-33); Albumin Level 4.2 g/dL (3.5-5.2); Alkaline Phosphatase 73 IU/L (35-105); Anion Gap 10.9 (5-19); Aspartate Amino Transferase 14 U/L (0-32); Blood Urea Nitrogen 9 mg/dL (6-20); Carbon Dioxide 26 mmol/L (22-29); Chloride 103 mmol/L (98-107); Ferritin 14 ng/mL (15-150); Globulin 2.6 g/dL (1.3-4.6); Glomerular Filtration Rate 107.6 mL/min (90-130); Glucose 80 mg/dL (65-115); Iron 40 ug/dL (37-145); Osmolality Calculated 280 mOsm/kg (285-295); Percent Saturation 11.5 % (20-50); Potassium 3.9 mmol/L (3.5-5.1); Sodium 136 mmol/L (136-145); Total Bilirubin 0.2 mg/dL (0.15-1.2); Total Iron Binding Capacity 347 mcg/dl; Total Protein 6.8 g/dL (6.6-8.7); Unsaturated Iron Binding 307 ug/dL (112-347)
--- NOTE | 2020-08-04 10:24 | ONC FU_ITS ---
Dr. Gutierrez follow up note Patient: Bonnie Lr Unit #: [id number]: [id number] Dicatated By: Mikhail Gutierrez M.D.Date of Visit:August 04, 2020 Onc Med Follow-up/Prog Note History of Present Illness: Ms. Bonnie Lr, is a 45-year-old female with 6-month history of off and on bleeding per rectum and progressive generalized weakness and fatigue, her CBC done on April 07, 2020 showed hemoglobin of around 7 or 8 g, patient was started on oral iron by PMD and patient was referred to Dr. Shen for evaluation and EGD and colonoscopy. And on April 16, 2020 she underwent colonoscopy which showed at 30 cm from anal verge, is severe, malignant appearing, intrinsic stenosis was noted, the stenosis was not traversed completely obstructing, large size fungating, friable, infiltrating, malignant appearing, ulcerated, circumferential mass was seen and the mass was actively bleeding, biopsies were obtained which confirmed malignancy and on April 16, [address] scan of abdomen pelvis done which showed annular colonic lesion in the distal descending/sigmoid colon extends over 3 cm with wall thickening measuring up to 1.1 cm with a high density contrast and cervical and vaginal canals possibility of rectovaginal or ectocervical fistula should be considered. Patient underwent exploratory laparotomy and sigmoid colectomy on April 16, 2020 and final pathology report showed tumor size 5.7 cm, no macroscopic tumor perforation, well-differentiated adenocarcinoma, tumor invades through muscularis propria into pericolorectal tissue. All margins clear. No lymphovascular invasion seen. 0 out of 13 lymph nodes showed metastatic disease e.g. pT3,N0, MX, stage II Patient tolerated procedure well. Patient denies any history of weight loss, patient denies any history of jaundice patient denies any history of abdominal pain or melena or hematochezia, denies any fever chills denies any hematuria or dysuria. Patient denies any history of smoking or alcohol use.. Patient underwent colonoscopy on 07/02/2020, as per patient some abnormal tissue was removed he was benign and Dr. Castellanos told her to repeat colonoscopy in 3 years. 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 Medications: Ferrous Sulfate ER 1 Tablet (of 50 mg) Tablet, controlled release Oral daily, Levothyroxine Sodium 1 Tablet (of 125 mcg) Oral daily, Viibryd 1 Tablet (of 20 mg) Oral daily Allergies: No Known Allergies. Review of Systems: Review of Systems is not available for this patient. Vital Signs: Performed on August 04, 2020 10:10 Height - 64.00 in Weight - 194.4 lbs (HIGH) BSA - 1.93 sq.m BMI - 33.37 (HIGH) Temperature - 97.6 F (LOW) Pulse - 70 /min Respiration - 18 /min BP - 140/76 mm(hg) O2 Sat - 99 % Pain - 0 Performance Status: 0 - Fully active, able to carry on all predisease activities without restrictions. (ECOG) Physical Examination: ENMT - No mouth sores, no thrush, no jaundice, Respiratory - Lungs are clear to auscultation, Cardiovascular - Regular rate and rhythm of heart, Abdomen - Soft, bowel sounds present, Extremities - No visible edema. Lab/Imaging: Test performed on May 05, 2020 11:43 Ferritin 61 ng/mL Folate, Serum 18.0 ng/mL Iron 49 mcg/dL Sodium 135 mmol/L Vitamin B12 491 pg/mL Iron Binding Capacity (TIBC) 346 mcg/dl Potassium 3.7 mmol/L % Iron Saturation 14.1 % Chloride 103 mmol/L CO2 23 mmol/L UIBC 297 mcg/dL Anion Gap 12.7 BUN 6 mg/dL Creatinine 0.6 mg/dL Cr Clearance (Est) 162.2500 mL/min eGFR 107.6 mL/min Glucose 66 mg/dL Osmolality - Calculated 276 mOsm/kg Calcium 9.5 mg/dL Protein, Total 6.9 g/dL Albumin 4.1 g/dL Globulin 2.8 g/dL Bilirubin, Total 0.3 mg/dL ALT (SGPT) 16 U/L AST (SGOT) 16 U/L Alkaline Phosphatase 70 IU/L WBC 5.5 10 3/uL RBC 3.97 10 6/uL HGB 10.4 g/dL HCT 34.2 % MCV 86.1 fL MCH 26.2 pg MCHC 30.4 g/dL RDW 18.9 % Platelet Count 320 10 3/cmm MPV 10.8 fL Neutrophils 3.02 10 3/uL Lymphocytes 1.6 10 3/uL Monocytes 0.6 10 3/uL Eosinophils 0.2 10 3/uL Basophils 0.1 10 3/uL Neutrophil % 54.6 % Lymphocyte % 28.4 % Monocyte % 11.0 % Eosinophil % 3.4 % Basophils % 2.4 % NRBC % 0 % Impression: Well-differentiated adenocarcinoma involving sigmoid colon status post exploratory laparotomy with sigmoid colectomy done on April 17, 2020 and final pathology report showed well-differentiated adenocarcinoma 5.7 cm, tumor invades through muscularis propria into pericolorectal tissue,, with clear surgical margin, no lymphovascular invasion seen, 0 out of 13 lymph node showed metastatic disease, pT3, N0, MX, stage II, MSI MMR proficient Being high risk, Adjuvant chemotherapy was offered, but patient opted for observation CT scan of abdomen pelvis done on April 16, 2020 showed annular colonic lesion in the distal descending/sigmoid colon. No metastatic disease to the liver or adrenal gland or no lymphadenopathy. High density contrast in the cervical and vaginal canal probability of rectovaginal/ectocervical fistula should be considered Postop colonoscopy done on 07/02/2020, was unremarkable Iron deficiency anemia due to above, On oral iron tolerating well Longstanding history of rectovaginal fistula Plan: Discussed with patient regarding her labs white blood count 5.5 hemoglobin 12.3 hematocrit 38.5 platelets 258,000 CMP within normal limits iron studies shows iron saturation 11.5% ferritin 14 compared to 61 previously, TIBC 347, CEA is pending Clinically, patient doing well with no new signs symptoms history of recurrence of disease, follow-up lab shows improvement in her hemoglobin but further drop in her iron stores, patient stopped taking oral iron on her own. Patient was advised to start taking oral iron 2 tablets p.o. daily on empty stomach and then return to clinic in 1 month with CBC and iron studies, if there is no improvement in her iron stores, may consider parenteral iron., Patient recently underwent postop colonoscopy, as per patient it was unremarkable, there was abnormal tissue removed but it was benign and next colonoscopy is recommended in 3 years. Signed By: Mikhail Gutierrez M.D. <<Signature on File>>
[2020-08-04 10:57] LABS: Carcinoembryonic Antigen 1.5 ng/mL (0.0-4.7)
== END 2020-08-04 07:39 | disposition home or self-care (01) ==
LOC: ONCMED 07:39
PROVIDERS: PCP Nurse Practitioner Family; Visit Provider Internal Medicine Hematology & Oncology
DX: C18.7 Malignant neoplasm of sigmoid colon (principal); D50.0 Iron deficiency anemia secondary to blood loss (chronic); N82.3 Fistula of vagina to large intestine; Z79.899 Other long term (current) drug therapy; Z92.21 Personal history of antineoplastic chemotherapy
CPT/HCPCS: 36415; 80053; 82378; 82728; 83540; 83550; 85025; 99214

== ENCOUNTER 2020-09-06 09:15 | Outpatient (CLI) | payer OTHER, SELFPAY ==
[2020-09-06 09:38] LABS: Basophils # 0.1 10^3/uL (0.0-0.1); Basophils % 2.4 %; Eosinophils # 0.1 10^3/uL (0.0-0.8); Eosinophils % 1.5 %; Hematocrit 40.3 % (37.0-47.0); Hemoglobin 13.5 g/dL (11.5-15.3); Lymphocytes # 1.9 10^3/uL (0.8-4.8); Lymphocytes % 32.5 %; Mean Corpuscular HGB Conc 33.5 g/dL (30.0-36.0); Mean Corpuscular Volume 92.4 fL (81-99); Mean Platelet Volume 10.9 fL (7.4-10.4); Monocytes # 0.5 10^3/uL (0.2-0.9); Monocytes % 7.8 %; Neutrophils # 3.27 10^3/uL (1.8-7.7); Neutrophils % 55.5 %; Nucleated Red Blood Cells % 0 %; Platelet Count 236 10^3/cmm (130-400); Red Blood Count 4.36 10^6/uL (4.1-5.3); Red Cell Distribution Width 15.9 % (12.1-15.1); White Blood Count 5.9 10^3/uL (4.0-10.0)
[2020-09-06 10:01] LABS: Thyroid Stimulating Hormone 20.86 uIU/mL (0.27-4.20)
[2020-09-06 10:56] LABS: Ferritin 30 ng/mL (15-150); Iron 214 ug/dL (37-145); Percent Saturation 70.6 % (20-50); Total Iron Binding Capacity 303 mcg/dl; Unsaturated Iron Binding 89 ug/dL (112-347)
== END 2020-09-06 09:16 | disposition home or self-care (01) ==
LOC: ONCMED 09:16
PROVIDERS: PCP Nurse Practitioner Family; Visit Provider Internal Medicine Hematology & Oncology
DX: C18.7 Malignant neoplasm of sigmoid colon (principal)
CPT/HCPCS: 82728; 83540; 83550; 84443; 85025

== ENCOUNTER 2020-09-08 05:59 | Outpatient (CLI) | payer OTHER, SELFPAY ==
--- NOTE | 2020-09-08 09:54 | ONC FU_ITS ---
Dr. Gutierrez follow up note Patient: Bonnie Lr Unit #: [id number]: 1975 Dicatated By: Mikhail Gutierrez M.D.Date of Visit:Sep 08, 2020 Onc Med Follow-up/Prog Note History of Present Illness: Ms. Bonnie Lr, is a 45-year-old female with 6-month history of off and on bleeding per rectum and progressive generalized weakness and fatigue, her CBC done on April 07, 2020 showed hemoglobin of around 7 or 8 g, patient was started on oral iron by PMD and patient was referred to Dr. Shen for evaluation and EGD and colonoscopy. And on April 16, 2020 she underwent colonoscopy which showed at 30 cm from anal verge, is severe, malignant appearing, intrinsic stenosis was noted, the stenosis was not traversed completely obstructing, large size fungating, friable, infiltrating, malignant appearing, ulcerated, circumferential mass was seen and the mass was actively bleeding, biopsies were obtained which confirmed malignancy and on April 16, [address] scan of abdomen pelvis done which showed annular colonic lesion in the distal descending/sigmoid colon extends over 3 cm with wall thickening measuring up to 1.1 cm with a high density contrast and cervical and vaginal canals possibility of rectovaginal or ectocervical fistula should be considered. Patient underwent exploratory laparotomy and sigmoid colectomy on April 16, 2020 and final pathology report showed tumor size 5.7 cm, no macroscopic tumor perforation, well-differentiated adenocarcinoma, tumor invades through muscularis propria into pericolorectal tissue. All margins clear. No lymphovascular invasion seen. 0 out of 13 lymph nodes showed metastatic disease e.g. pT3,N0, MX, stage II Patient tolerated procedure well. Patient denies any history of weight loss, patient denies any history of jaundice patient denies any history of abdominal pain or melena or hematochezia, denies any fever chills denies any hematuria or dysuria. Patient denies any history of smoking or alcohol use.. Patient underwent colonoscopy on 07/02/2020, as per patient some abnormal tissue was removed he was benign and Dr. Castellanos told her to repeat colonoscopy in 3 years.On oral iron supplement for iron deficiency anemia Came for follow-up, denies any specific complaints, no fever chills, no nausea or vomiting, no diarrhea constipation, no melena or hematochezia, no jaundice, no abdominal pain, tolerating oral iron well otherwise Medications: Ferrous Sulfate ER 1 Tablet (of 50 mg) Tablet, controlled release Oral daily, Levothyroxine Sodium 1 Tablet (of 125 mcg) Oral daily Allergies: No Known Allergies. Review of Systems: Review of Systems is not available for this patient. Vital Signs: Performed on Sep 08, 2020 08:10 Height - 64.00 in Weight - 191.2 lbs (LOW) BSA - 1.92 sq.m BMI - 32.82 (HIGH) Temperature - 98.6 F Pulse - 77 /min Respiration - 18 /min BP - 112/73 mm(hg) O2 Sat - 98 % Pain - 0 Fatigue - 5 Performance Status: 0 - Fully active, able to carry on all predisease activities without restrictions. (ECOG) Physical Examination: ENMT - No mouth sores, no thrush, no jaundice, Respiratory - Lungs are clear to auscultation, Cardiovascular - Regular rate and rhythm of heart, Abdomen - Soft, bowel sounds present, Extremities - No visible edema. Lab/Imaging: Test performed on May 05, 2020 11:43 Ferritin 61 ng/mL Folate, Serum 18.0 ng/mL Iron 49 mcg/dL Sodium 135 mmol/L Vitamin B12 491 pg/mL Iron Binding Capacity (TIBC) 346 mcg/dl Potassium 3.7 mmol/L % Iron Saturation 14.1 % Chloride 103 mmol/L CO2 23 mmol/L UIBC 297 mcg/dL Anion Gap 12.7 BUN 6 mg/dL Creatinine 0.6 mg/dL Cr Clearance (Est) 162.2500 mL/min eGFR 107.6 mL/min Glucose 66 mg/dL Osmolality - Calculated 276 mOsm/kg Calcium 9.5 mg/dL Protein, Total 6.9 g/dL Albumin 4.1 g/dL Globulin 2.8 g/dL Bilirubin, Total 0.3 mg/dL ALT (SGPT) 16 U/L AST (SGOT) 16 U/L Alkaline Phosphatase 70 IU/L WBC 5.5 10 3/uL RBC 3.97 10 6/uL HGB 10.4 g/dL HCT 34.2 % MCV 86.1 fL MCH 26.2 pg MCHC 30.4 g/dL RDW 18.9 % Platelet Count 320 10 3/cmm MPV 10.8 fL Neutrophils 3.02 10 3/uL Lymphocytes 1.6 10 3/uL Monocytes 0.6 10 3/uL Eosinophils 0.2 10 3/uL Basophils 0.1 10 3/uL Neutrophil % 54.6 % Lymphocyte % 28.4 % Monocyte % 11.0 % Eosinophil % 3.4 % Basophils % 2.4 % NRBC % 0 % Impression: Well-differentiated adenocarcinoma involving sigmoid colon status post exploratory laparotomy with sigmoid colectomy done on April 17, 2020 and final pathology report showed well-differentiated adenocarcinoma 5.7 cm, tumor invades through muscularis propria into pericolorectal tissue,, with clear surgical margin, no lymphovascular invasion seen, 0 out of 13 lymph node showed metastatic disease, pT3, N0, MX, stage II, MSI MMR proficient Being high risk, Adjuvant chemotherapy was offered, but patient opted for observation CT scan of abdomen pelvis done on April 16, 2020 showed annular colonic lesion in the distal descending/sigmoid colon. No metastatic disease to the liver or adrenal gland or no lymphadenopathy. High density contrast in the cervical and vaginal canal probability of rectovaginal/ectocervical fistula should be considered Postop colonoscopy done on 07/02/2020, was unremarkable Iron deficiency anemia due to above, On oral iron tolerating well Longstanding history of rectovaginal fistula Plan: Discussed with patient regarding her labs white blood count 5.9 hemoglobin 13.5 g hematocrit 40.3 platelets 236,000 iron studies shows iron saturation 70.6, ferritin 30 compared to 14 previously in July 2020 iron 214, CEA 1.5 Clinically, patient doing well with no new signs symptoms history of recurrence of disease, her lab work-up shows iron deficiency anemia now resolved and improvement in iron stores patient on oral iron twice a day, at this point, she was advised to take 1 iron pill a day and then she will return to clinic in 2 months with CBC CMP iron studies and CEA Signed By: Mikhail Gutierrez M.D. <<Signature on File>>
== END 2020-09-08 06:00 | disposition home or self-care (01) ==
LOC: ONCMED 06:00
PROVIDERS: PCP Nurse Practitioner Family; Visit Provider Internal Medicine Hematology & Oncology
DX: C18.7 Malignant neoplasm of sigmoid colon (principal); D50.9 Iron deficiency anemia, unspecified; N82.3 Fistula of vagina to large intestine; Z79.899 Other long term (current) drug therapy
CPT/HCPCS: 99214

== ENCOUNTER → 2020-10-11 08:57 | Outpatient (BNVA) | payer OTHER, SELFPAY | PROVIDERS: PCP Nurse Practitioner Family; Visit Provider Nurse Practitioner Family | DX: E03.9 Hypothyroidism, unspecified (principal); D50.9 Iron deficiency anemia, unspecified | CPT/HCPCS: 83550; 84443 ==

== ENCOUNTER 2020-11-10 08:14 | Outpatient (CLI) | payer OTHER, SELFPAY ==
[2020-11-10 08:44] LABS: Basophils # 0.1 10^3/uL (0.0-0.1); Basophils % 1.8 %; Eosinophils # 0.1 10^3/uL (0.0-0.8); Eosinophils % 1.8 %; Hemoglobin 14.1 g/dL (11.5-15.3); Lymphocytes % 29.4 %; Mean Corpuscular HGB Conc 33.6 g/dL (30.0-36.0); Mean Corpuscular Hemoglobin 31.4 pg (28.0-34.0); Mean Corpuscular Volume 93.5 fl (81-99); Monocytes # 0.6 10^3/uL (0.2-0.9); Monocytes % 8.6 %; Neutrophils # 3.86 10^3/uL (1.8-7.7); Neutrophils % 58.2 %; Nucleated Red Blood Cells % 0 %; Platelet Count 243 10^3/cmm (130-400); Red Blood Count 4.49 10^6/uL (4.1-5.3); Red Cell Distribution Width 12.6 % (12.1-15.1); White Blood Count 6.6 10^3/uL (4.0-10.0)
[2020-11-10 09:28] LABS: Alanine Aminotransferase 13 U/L (0-33); Albumin Level 4.3 g/dL (3.5-5.2); Alkaline Phosphatase 71 IU/L (35-105); Aspartate Amino Transferase 15 U/L (0-32); Blood Urea Nitrogen 11 mg/dL (6-20); Calcium 8.9 mg/dL (8.5-10.5); Carbon Dioxide 20 mmol/L (22-29); Chloride 104 mmol/L (98-107); Ferritin 28 ng/mL (15-150); Globulin 2.8 g/dL (1.3-4.6); Glomerular Filtration Rate 132.8 mL/min (90-130); Glucose 83 mg/dL (65-115); Iron 61 ug/dL (37-145); Osmolality Calculated 279 mOsm/kg (285-295); Percent Saturation 17.7 % (20-50); Sodium 135 mmol/L (136-145); Total Bilirubin 0.3 mg/dL (0.15-1.2); Total Iron Binding Capacity 344 mcg/dl; Total Protein 7.1 g/dL (6.6-8.7); Unsaturated Iron Binding 283 ug/dL (112-347)
[2020-11-10 10:28] LABS: Carcinoembryonic Antigen 1.2 ng/mL (0.0-4.7)
== END 2020-11-10 08:15 | disposition home or self-care (01) ==
LOC: ONCMED 08:17
PROVIDERS: Internal Medicine Hematology & Oncology; PCP Nurse Practitioner Family; Visit Provider Internal Medicine Medical Oncology
DX: C18.7 Malignant neoplasm of sigmoid colon (principal)
CPT/HCPCS: 36415; 80053; 82378; 82728; 83540; 83550; 85025

== ENCOUNTER 2020-11-18 05:38 | Outpatient (CLI) | payer OTHER, SELFPAY ==
--- NOTE | 2020-11-21 18:57 | ONC FU_ITS ---
Dr. Gutierrez follow up note Patient: Bonnie Lr Unit #: [id number]: 1975 Dicatated By: Mikhail Gutierrez M.D.Date of Visit:Nov 18, 2020 Onc Med Follow-up/Prog Note History of Present Illness: Ms. Bonnie Lr, is a 45-year-old female with 6-month history of off and on bleeding per rectum and progressive generalized weakness and fatigue, her CBC done on April 07, 2020 showed hemoglobin of around 7 or 8 g, patient was started on oral iron by PMD and patient was referred to Dr. Shen for evaluation and EGD and colonoscopy. And on April 16, 2020 she underwent colonoscopy which showed at 30 cm from anal verge, is severe, malignant appearing, intrinsic stenosis was noted, the stenosis was not traversed completely obstructing, large size fungating, friable, infiltrating, malignant appearing, ulcerated, circumferential mass was seen and the mass was actively bleeding, biopsies were obtained which confirmed malignancy and on April 16, [address] scan of abdomen pelvis done which showed annular colonic lesion in the distal descending/sigmoid colon extends over 3 cm with wall thickening measuring up to 1.1 cm with a high density contrast and cervical and vaginal canals possibility of rectovaginal or ectocervical fistula should be considered. Patient underwent exploratory laparotomy and sigmoid colectomy on April 16, 2020 and final pathology report showed tumor size 5.7 cm, no macroscopic tumor perforation, well-differentiated adenocarcinoma, tumor invades through muscularis propria into pericolorectal tissue. All margins clear. No lymphovascular invasion seen. 0 out of 13 lymph nodes showed metastatic disease e.g. pT3,N0, MX, stage II Patient tolerated procedure well. Patient denies any history of weight loss, patient denies any history of jaundice patient denies any history of abdominal pain or melena or hematochezia, denies any fever chills denies any hematuria or dysuria. Patient denies any history of smoking or alcohol use.. Patient underwent colonoscopy on 07/02/2020, as per patient some abnormal tissue was removed he was benign and Dr. Castellanos told her to repeat colonoscopy in 3 years.On oral iron supplement for iron deficiency anemia Came for follow-up, denies any specific complaints, no fever chills, no nausea or vomiting, no diarrhea or constipation, no abdominal pain, no jaundice, appetite is good Medications: Cholecalciferol 1 Capsule (of 25 mcg ) Oral daily, Ferrous Sulfate ER 1 Tablet (of 50 mg) Tablet, controlled release Oral daily, Levothyroxine Sodium 1 Tablet (of 125 mcg) Oral daily Allergies: No Known Allergies. Review of Systems: Review of Systems is not available for this patient. Vital Signs: Performed on Nov 18, 2020 08:09 Height - 64.00 in Weight - 193.0 lbs (HIGH) BSA - 1.93 sq.m BMI - 33.13 (HIGH) Temperature - 97.4 F (LOW) Pulse - 77 /min Respiration - 17 /min BP - 122/74 mm(hg) O2 Sat - 98 % Pain - 0 Performance Status: 0 - Fully active, able to carry on all predisease activities without restrictions. (ECOG) Physical Examination: ENMT - No mouth sores, no thrush, no jaundice, Respiratory - Lungs are clear to auscultation, Cardiovascular - Regular rate and rhythm of heart , Abdomen - Soft, bowel sounds present, Extremities - No visible edema. Lab/Imaging: Most recent lab results are not available for this patient. Impression: Well-differentiated adenocarcinoma involving sigmoid colon status post exploratory laparotomy with sigmoid colectomy done on April 17, 2020 and final pathology report showed well-differentiated adenocarcinoma 5.7 cm, tumor invades through muscularis propria into pericolorectal tissue,, with clear surgical margin, no lymphovascular invasion seen, 0 out of 13 lymph node showed metastatic disease, pT3, N0, MX, stage II, MSI MMR proficient Being high risk, Adjuvant chemotherapy was offered, but patient opted for observation CT scan of abdomen pelvis done on April 16, 2020 showed annular colonic lesion in the distal descending/sigmoid colon. No metastatic disease to the liver or adrenal gland or no lymphadenopathy. High density contrast in the cervical and vaginal canal probability of rectovaginal/ectocervical fistula should be considered Postop colonoscopy done on 07/02/2020, was unremarkable Iron deficiency anemia due to above, On oral iron tolerating well Longstanding history of rectovaginal fistula Plan: Discussed with patient regarding her labs white blood count 6.6 hemoglobin 14.1 hematocrit 42 platelets 243,000 CMP within normal limits iron studies shows iron saturation 17.7 compared to 17.6 previously ferritin 28 compared to 30 previously iron 61, TIBC 344, CEA 1.2 Clinically, patient doing well with no new signs symptom suggestive of recurrence of her colon cancer, her tumor marker is within normal range lab work-up is within normal range except further drop in her iron stores although hemoglobin is normal range, patient on oral iron supplement 1 tablet a day, at this point will increase to 2 tablets a day and then return to clinic in 3 months with CBC CMP, CEA and iron studies. Signed By: Mikhail Gutierrez M.D. <<Signature on File>>
== END 2020-11-18 05:39 | disposition home or self-care (01) ==
PROVIDERS: PCP Nurse Practitioner Family; Visit Provider Internal Medicine Hematology & Oncology
DX: C19 Malignant neoplasm of rectosigmoid junction (principal); D50.8 Other iron deficiency anemias; Z79.890 Hormone replacement therapy
CPT/HCPCS: 99214

== ENCOUNTER → 2020-12-15 02:00 | Outpatient (BNVA) | payer OTHER, SELFPAY | PROVIDERS: PCP Nurse Practitioner Family; Visit Provider Nurse Practitioner Family | DX: E03.9 Hypothyroidism, unspecified (principal); Z68.31 Body mass index [BMI] 31.0-31.9, adult | CPT/HCPCS: 84443 ==

== ENCOUNTER 2021-02-17 06:00 | Outpatient (CLI) | payer OTHER, SELFPAY ==
[2021-02-17 11:21] LABS: Hematocrit 41.1 % (37.0-47.0); Hemoglobin 13.7 g/dL (11.5-15.3); Mean Corpuscular HGB Conc 33.3 g/dL (30.0-36.0); Mean Corpuscular Hemoglobin 31.7 pg (28.0-34.0); Mean Corpuscular Volume 95.1 fl (81-99); Platelet Count 244 10^3/cmm (130-400); Red Blood Count 4.32 10^6/uL (4.1-5.3); Red Cell Distribution Width 13.2 % (12.1-15.1); White Blood Count 7.3 10^3/uL (4.0-10.0)
[2021-02-17 11:32] LABS: Absolute Segmented Neutrophil 3.8 10/cmm (1.6-7.1); Alanine Aminotransferase 11 U/L (0-33); Albumin Level 4.1 g/dL (3.5-5.2); Alkaline Phosphatase 82 IU/L (35-105); Anion Gap 13.9 (5-19); Aspartate Amino Transferase 17 U/L (0-32); Blood Urea Nitrogen 8 mg/dL (6-20); Calcium 9.2 mg/dL (8.5-10.5); Carbon Dioxide 25 mmol/L (22-29); Chloride 100 mmol/L (98-107); Eosinophils 1 %; Ferritin 25 ng/mL (15-150); Globulin 2.8 g/dL (1.3-4.6); Glomerular Filtration Rate 107.6 mL/min (90-130); Glucose 77 mg/dL (65-115); Iron 72 ug/dL (37-145); Lymphocytes 42 %; Monocytes Absolute 0.4 10^3/cmm (0.1-0.6); Osmolality Calculated 277 mOsm/kg (285-295); Percent Saturation 20.3 % (20-50); Potassium 3.9 mmol/L (3.5-5.1); Segmented Neutrophils 52 %; Sodium 135 mmol/L (136-145); Total Bilirubin 0.3 mg/dL (0.15-1.2); Total Cells Counted 100 (0-100); Total Iron Binding Capacity 353 mcg/dl; Total Protein 6.9 g/dL (6.6-8.7); Unsaturated Iron Binding 281 ug/dL (112-347)
[2021-02-17 11:33] LABS: Lymphocytes Absolute 3.1 10^3/cmm (1.2-3.4); Platelet Estimate Normal (Normal)
[2021-02-17 11:34] LABS: Absolute Neutrophil 3.8 10^3/cmm (1.4-6.5)
[2021-02-17 11:54] LABS: Carcinoembryonic Antigen 1.1 ng/mL (0.0-4.7)
== END 2021-02-17 06:01 ==
LOC: ONCMED 02-21 06:46
PROVIDERS: PCP Nurse Practitioner Family; Visit Provider Internal Medicine Hematology & Oncology
DX: C18.7 Malignant neoplasm of sigmoid colon (principal); D50.9 Iron deficiency anemia, unspecified; Z79.899 Other long term (current) drug therapy
CPT/HCPCS: 80053; 82378; 82728; 83540; 83550; 85007; 85027

== ENCOUNTER 2021-02-21 07:53 | Outpatient (CLI) | payer OTHER, SELFPAY ==
--- NOTE | 2021-02-21 08:46 | ONC FU_ITS ---
Dr. Gutierrez follow up note Patient: Bonnie Lr Unit #: [id number]: 1975 Dicatated By: Mikhail Gutierrez M.D.Date of Visit:Feb 21, 2021 Onc Med Follow-up/Prog Note History of Present Illness: Ms. Bonnie Lr, is a 45-year-old female with 6-month history of off and on bleeding per rectum and progressive generalized weakness and fatigue, her CBC done on April 07, 2020 showed hemoglobin of around 7 or 8 g, patient was started on oral iron by PMD and patient was referred to Dr. Shen for evaluation and EGD and colonoscopy. And on April 16, 2020 she underwent colonoscopy which showed at 30 cm from anal verge, is severe, malignant appearing, intrinsic stenosis was noted, the stenosis was not traversed completely obstructing, large size fungating, friable, infiltrating, malignant appearing, ulcerated, circumferential mass was seen and the mass was actively bleeding, biopsies were obtained which confirmed malignancy and on April 16, [address] scan of abdomen pelvis done which showed annular colonic lesion in the distal descending/sigmoid colon extends over 3 cm with wall thickening measuring up to 1.1 cm with a high density contrast and cervical and vaginal canals possibility of rectovaginal or ectocervical fistula should be considered. Patient underwent exploratory laparotomy and sigmoid colectomy on April 16, 2020 and final pathology report showed tumor size 5.7 cm, no macroscopic tumor perforation, well-differentiated adenocarcinoma, tumor invades through muscularis propria into pericolorectal tissue. All margins clear. No lymphovascular invasion seen. 0 out of 13 lymph nodes showed metastatic disease e.g. pT3,N0, MX, stage II Patient tolerated procedure well. Patient denies any history of weight loss, patient denies any history of jaundice patient denies any history of abdominal pain or melena or hematochezia, denies any fever chills denies any hematuria or dysuria. Patient denies any history of smoking or alcohol use.. Patient underwent colonoscopy on 07/02/2020, as per patient some abnormal tissue was removed he was benign and Dr. 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 And also do not get enough sleep during daytime. Denies any melena or hematochezia denies any hemoptysis hematemesis denies any jaundice denies any abdominal pain denies any chest pain or palpitation or dyspnea on exertion. Patient on oral iron but somewhat noncompliant. Medications: Cholecalciferol 1 Capsule (of 25 mcg ) Oral daily, Ferrous Sulfate ER 1 Tablet (of 50 mg) Tablet, controlled release Oral daily, Levothyroxine Sodium 1 Tablet (of 125 mcg) Oral daily Allergies: No Known Allergies. Review of Systems: Review of Systems is not available for this patient. Vital Signs: Performed on Feb 21, 2021 08:13 Height - 64.00 in Weight - 198 lbs (HIGH) BSA - 1.95 sq.m BMI - 33.99 (HIGH) Temperature - 97.7 F (LOW) Pulse - 84 /min Respiration - 16 /min BP - 129/77 mm(hg) O2 Sat - 98 % Pain - 0 Fatigue - 7 Performance Status: 0 - Fully active, able to carry on all predisease activities without restrictions. (ECOG) Physical Examination: ENMT - No mouth sores, no thrush, no jaundice, Respiratory - Lungs are clear to auscultation, Cardiovascular - Regular rate and rhythm of heart, Abdomen - Soft, bowel sounds present, Extremities - No visible edema. Lab/Imaging: Most recent lab results are not available for this patient. Impression: Well-differentiated adenocarcinoma involving sigmoid colon status post exploratory laparotomy with sigmoid colectomy done on April 17, 2020 and final pathology report showed well-differentiated adenocarcinoma 5.7 cm, tumor invades through muscularis propria into pericolorectal tissue,, with clear surgical margin, no lymphovascular invasion seen, 0 out of 13 lymph node showed metastatic disease, pT3, N0, MX, stage II, MSI MMR proficient Being high risk, Adjuvant chemotherapy was offered, but patient opted for observation CT scan of abdomen pelvis done on April 16, 2020 showed annular colonic lesion in the distal descending/sigmoid colon. No metastatic disease to the liver or adrenal gland or no lymphadenopathy. High density contrast in the cervical and vaginal canal probability of rectovaginal/ectocervical fistula should be considered Postop colonoscopy done on 07/02/2020, was unremarkable Iron deficiency anemia due to above, On oral iron tolerating well Longstanding history of rectovaginal fistula Plan: Discussed with patient regarding her labs white blood count 7.3 hemoglobin 13.4 hematocrit 41.1 platelets 244,000 CMP within normal limits CEA 1.1, iron studies shows improvement and now in the lower side of normal range. Clinically, patient doing well with no new signs symptom suggestive of recurrence of disease her lab work-up and tumor marker are within normal range. 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 Patient was advised to continue with oral iron although her hemoglobin is normal range and iron studies shows improvement in iron stores. Signed By: Mikhail Gutierrez M.D. <<Signature on File>>
== END 2021-02-21 07:54 | disposition home or self-care (01) ==
LOC: ONCMED 07:54
PROVIDERS: PCP Nurse Practitioner Family; Visit Provider Internal Medicine Hematology & Oncology
DX: Z08 Encounter for follow-up examination after completed treatment for malignant neoplasm (principal); Z85.038 Personal history of other malignant neoplasm of large intestine; D50.9 Iron deficiency anemia, unspecified; N82.3 Fistula of vagina to large intestine; Z79.899 Other long term (current) drug therapy; Z92.21 Personal history of antineoplastic chemotherapy
CPT/HCPCS: 36415; 99214

== ENCOUNTER 2021-04-05 10:45 | Outpatient (CLI) | payer OTHER, SELFPAY ==
--- NOTE | 2021-04-05 10:49 | XR_ITS ---
WS: [id number] XR chest 2V* [id number] REASON FOR EXAM: SOB FINDINGS: The heart and mediastinum are within normal limits. Minimal calcification of the aortic arch. Normal heart size. Calcified granulomatous disease in both hemithoraces. Questionable reticular and linear right lower lung field opacities. Bony thorax is intact without significant abnormality. XR/XR chest 2V* [id number] IMPRESSION: Equivocal findings in the right lung. As clinically warranted follow-up chest x -ray should be obtained.
== END 2021-04-05 10:46 | disposition home or self-care (01) ==
PROVIDERS: PCP Nurse Practitioner Family; Visit Provider Nurse Practitioner Family
DX: R06.00 Dyspnea, unspecified (principal); D50.9 Iron deficiency anemia, unspecified
CPT/HCPCS: 71046; 83550; 85379

== ENCOUNTER 2021-04-07 05:22 | Outpatient (CLI) | payer OTHER, SELFPAY ==
--- NOTE | 2021-04-07 05:57 | XR_ITS ---
WS: [id number] XR chest 2V* [id number] REASON FOR EXAM: R06.00 - Dyspnea, unspecified FINDINGS: This examination is in follow-up of an equivocal changes in the medial right lower lung. At this time both lung torres are essentially clear. The heart and the mediastinum are normal. There are no new f indings or other interval change. XR/XR chest 2V* [id number] IMPRESSION: The follow-up chest x-rays considered to be within normal limits. Initial interpretation was an overcall.
== END 2021-04-07 05:23 | disposition home or self-care (01) ==
PROVIDERS: PCP Nurse Practitioner Family; Visit Provider Nurse Practitioner Family
DX: R06.00 Dyspnea, unspecified (principal)
CPT/HCPCS: 71046

== ENCOUNTER 2021-06-09 13:28 | Outpatient (CLI) | payer OTHER, SELFPAY ==
[2021-06-09 13:55] LABS: Basophils # 0.1 10^3/uL (0.0-0.1); Basophils % 1.9 %; Eosinophils % 0.7 %; Hematocrit 42.1 % (37.0-47.0); Hemoglobin 14.2 g/dL (11.5-15.3); Lymphocytes # 1.8 10^3/uL (0.8-4.8); Lymphocytes % 31.2 %; Mean Corpuscular HGB Conc 33.7 g/dL (30.0-36.0); Mean Corpuscular Hemoglobin 31.5 pg (28.0-34.0); Mean Corpuscular Volume 93.3 fl (81-99); Mean Platelet Volume 11.1 fL (7.4-10.4); Monocytes # 0.4 10^3/uL (0.2-0.9); Monocytes % 7.6 %; Neutrophils # 3.37 10^3/uL (1.8-7.7); Neutrophils % 58.4 %; Nucleated Red Blood Cells % 0 %; Platelet Count 231 10^3/cmm (130-400); Red Blood Count 4.51 10^6/uL (4.1-5.3); White Blood Count 5.8 10^3/uL (4.0-10.0)
[2021-06-09 14:31] LABS: Ferritin 20 ng/mL (15-150); Iron 70 ug/dL (37-145); Percent Saturation 19.6 % (20-50); Thyroid Stimulating Hormone 1.55 uIU/mL (0.27-4.20); Total Iron Binding Capacity 356 mcg/dl; Unsaturated Iron Binding 286 ug/dL (112-347)
== END 2021-06-09 13:29 | disposition home or self-care (01) ==
LOC: LAB 13:30
PROVIDERS: PCP Nurse Practitioner Family; Visit Provider Nurse Practitioner Family
DX: R06.09 Other forms of dyspnea (principal); D50.9 Iron deficiency anemia, unspecified; E03.9 Hypothyroidism, unspecified
CPT/HCPCS: 82728; 83540; 83550; 84443; 85025

== ENCOUNTER 2021-09-16 07:53 | Oncology outpatient (recurring) (ONCR) | payer OTHER, SELFPAY ==
[2021-09-15 09:59] LABS: Basophils # 0.1 10^3/uL (0.0-0.1); Basophils % 2.4 %; Eosinophils # 0.1 10^3/uL (0.0-0.8); Eosinophils % 2.2 %; Hematocrit 40.1 % (37.0-47.0); Lymphocytes # 1.7 10^3/uL (0.8-4.8); Lymphocytes % 33.3 %; Mean Corpuscular HGB Conc 34.9 g/dL (30.0-36.0); Mean Corpuscular Volume 91.6 fl (81-99); Mean Platelet Volume 11.4 fL (7.4-10.4); Monocytes # 0.3 10^3/uL (0.2-0.9); Monocytes % 5.6 %; Neutrophils # 2.81 10^3/uL (1.8-7.7); Neutrophils % 56.3 %; Nucleated Red Blood Cells % 0 %; Platelet Count 212 10^3/cmm (130-400); Red Blood Count 4.38 10^6/uL (4.1-5.3)
[2021-09-15 10:21] LABS: Carcinoembryonic Antigen 1.1 ng/mL (0.0-4.7)
[2021-09-15 10:32] LABS: Alanine Aminotransferase 11 U/L (0-33); Albumin Level 4.3 g/dL (3.5-5.2); Alkaline Phosphatase 76 IU/L (35-105); Anion Gap 14.4 (5-19); Aspartate Amino Transferase 14 U/L (0-32); Blood Urea Nitrogen 9 mg/dL (6-20); Calcium 9.2 mg/dL (8.5-10.5); Carbon Dioxide 24 mmol/L (22-29); Chloride 102 mmol/L (98-107); Globulin 2.9 g/dL (1.3-4.6); Glomerular Filtration Rate 107.2 mL/min (90-130); Glucose 95 mg/dL (65-115); Osmolality Calculated 282 mOsm/kg (285-295); Potassium 3.4 mmol/L (3.5-5.1); Sodium 137 mmol/L (136-145); Total Bilirubin 0.5 mg/dL (0.15-1.2); Total Protein 7.2 g/dL (6.6-8.7)
== END 2021-09-22 23:59 | disposition home or self-care (01) ==
PROVIDERS: Visit Provider Internal Medicine Hematology & Oncology
DX: Z53.9 Procedure and treatment not carried out, unspecified reason (principal)
CPT/HCPCS: 80053; 82378; 85025

== ENCOUNTER → 2021-09-28 11:52 | Outpatient (BNVA) | payer OTHER, SELFPAY | PROVIDERS: Visit Provider Nurse Practitioner Family | DX: R10.9 Unspecified abdominal pain (principal); Z71.3 Dietary counseling and surveillance | CPT/HCPCS: 81003; 87086 ==

== ENCOUNTER → 2021-11-25 10:06 | Outpatient (BNVA) | payer OTHER, SELFPAY | PROVIDERS: Visit Provider Family Medicine | DX: E03.9 Hypothyroidism, unspecified (principal); R30.0 Dysuria | CPT/HCPCS: 81003; 84443; 87086 ==

== ENCOUNTER → 2022-01-09 08:22 | Outpatient (BNVA) | payer OTHER, BC, SELFPAY | PROVIDERS: Visit Provider Nurse Practitioner Family | DX: R31.0 Gross hematuria (principal) | CPT/HCPCS: 81003; 87086; 88112 ==

== ENCOUNTER → 2022-02-03 11:08 | Outpatient (BNVA) | payer BC, SELFPAY | PROVIDERS: Visit Provider Urology | DX: R10.9 Unspecified abdominal pain (principal); R31.0 Gross hematuria; R30.0 Dysuria | CPT/HCPCS: 81003 ==

== ENCOUNTER 2022-03-10 07:08 | Oncology outpatient (recurring) (ONCR) | payer BC, SELFPAY ==
[2022-03-10 07:41] LABS: Basophils # 0.1 10^3/uL (0.0-0.1); Basophils % 2.5 %; Eosinophils # 0.1 10^3/uL (0.0-0.8); Eosinophils % 2.3 %; Hematocrit 41.9 % (37.0-47.0); Hemoglobin 14.4 g/dL (11.5-15.3); Lymphocytes # 1.9 10^3/uL (0.8-4.8); Lymphocytes % 33.7 %; Mean Corpuscular HGB Conc 34.4 g/dL (30.0-36.0); Mean Corpuscular Hemoglobin 31.7 pg (28.0-34.0); Mean Corpuscular Volume 92.3 fl (81-99); Mean Platelet Volume 11.3 fL (7.4-10.4); Monocytes # 0.5 10^3/uL (0.2-0.9); Monocytes % 9.5 %; Neutrophils # 2.96 10^3/uL (1.8-7.7); Neutrophils % 51.8 %; Nucleated Red Blood Cells % 0 %; Platelet Count 237 10^3/cmm (130-400); Red Blood Count 4.54 10^6/uL (4.1-5.3); Red Cell Distribution Width 12.6 % (12.1-15.1); White Blood Count 5.7 10^3/uL (4.0-10.0)
[2022-03-10 08:08] LABS: Carcinoembryonic Antigen 1.1 ng/mL (0.0-4.7)
[2022-03-10 08:19] LABS: Alanine Aminotransferase 9 U/L (0-33); Albumin Level 4.5 g/dL (3.5-5.2); Alkaline Phosphatase 74 U/L (35-105); Anion Gap 12.7 (5-19); Aspartate Amino Transferase 12 U/L (0-32); Blood Urea Nitrogen 4 mg/dL (6-20); Calcium 9.5 mg/dL (8.5-10.5); Carbon Dioxide 25 mmol/L (22-29); Chloride 104 mmol/L (98-107); Globulin 2.4 g/dL (1.3-4.6); Glomerular Filtration Rate 107.2 mL/min (90-130); Glucose 78 mg/dL (65-115); Osmolality Calculated 282 mOsm/kg (285-295); Potassium 3.7 mmol/L (3.5-5.1); Sodium 138 mmol/L (136-145); Total Bilirubin 0.4 mg/dL (0.15-1.2); Total Protein 6.9 g/dL (6.6-8.7)
== END 2022-03-25 23:59 | disposition home or self-care (01) ==
PROVIDERS: PCP Nurse Practitioner Family; Visit Provider Internal Medicine Hematology & Oncology
DX: D49.0 Neoplasm of unspecified behavior of digestive system (principal); D50.9 Iron deficiency anemia, unspecified
CPT/HCPCS: 80053; 82378; 85025

== ENCOUNTER 2022-08-14 09:05 | Oncology outpatient (recurring) (ONCR) | payer BC, SELFPAY | END 2022-08-23 23:59 | disposition home or self-care (01) | PROVIDERS: PCP Nurse Practitioner Family; Visit Provider Internal Medicine Hematology & Oncology | DX: Z53.9 Procedure and treatment not carried out, unspecified reason (principal) ==